=== PATIENT | female | born 1980 ===

== ENCOUNTER 2020-05-18 11:21 | Emergency (ER) | payer OTHER, SELFPAY ==
--- NOTE | 2020-05-18 | XR_ITS ---
EXAMINATION: XR ANKLE, RIGHT CLINICAL INFORMATION: Pain with ambulation. COMPARISON: None TECHNIQUE: AP, lateral, and mortise views of the right ankle. FINDINGS: The bony alignment and mineralization are normal. No fracture. Alignment is anatomic. Joint spaces are maintained. There is mild peripheral osteophyte formation at the anterior aspect of the tibiotalar joint and of the dorsal midfoot. No joint effusion. There is a small plantar calcaneal spur. The soft tissue planes are unremarkable, without foreign body IMPRESSION: 1. No right ankle fracture, dislocation or joint effusion is seen. 2. There is a small plantar calcaneal spur. 3. There are mild osteoarthritic changes.
[2020-05-18 11:34] VITALS: BP 140/92; PULSE 90; RESP 18; TEMP 36.5; O2SAT 99; BMI 55.4
--- NOTE | 2020-05-18 13:09 | ED_ITS ---
HPI - Extremity Problem General Chief complaint: Extremity Injury, Lower Stated complaint: pain in r ankle Time Seen by Provider: 05/18/20 11:45 History of Present Illness HPI Narrative: patient complains of pain in the back of the right ankle for several days with no known injury, pain is worse with walking and movement mint and relieved by rest , she denies any break in the skin, no fever Related Data Previous Rx's Medication Instructions Recorded acetaminophen [Tylenol] 975 mg PO Q8H PRN #60 cap 05/18/20 acetaminophen [Tylenol] 975 mg PO Q8H PRN #60 cap 05/18/20 ibuprofen 800 mg PO Q8H PRN #20 tab 05/18/20 ibuprofen 800 mg PO Q8H PRN #30 tab 05/18/20 oxycodone 5 mg PO Q6H PRN #10 cap 05/18/20 oxycodone 5 mg PO Q6H PRN #10 cap 05/18/20 Allergies Allergy/AdvReac Type Severity Reaction Status Date / Time No Known Allergies Allergy Verified 05/18/20 11:40 [No Known Allergies*] Review of Systems Review of Systems: there is no chest pain, no trouble breathing no calf pain no redness no wound to the skin no numbness no weakness no radiation of pain, no rash PMFSH Past Medical History Source: nursing notes reviewed Medical History (Updated 05/18/20 @ 13:07 by CATALINO Zuniga) delivery delivered Obesity Surgical History (Updated 05/18/20 @ 11:39 by Martha Wallace) History of cholecystectomy Hx of laparoscopic gastric banding Social History Social History Alcohol intake: unknown Use of substances other than those prescribed or required for medical reasons: Unknown Advance Directives: No Advance Directives Information Provided: No Physical Exam Vital Signs and I&O and Narrative: Vital Signs and I&O: Vital Signs Temp 97.7 F 05/18/20 11:34 Pulse 90 05/18/20 11:34 Resp 18 05/18/20 11:34 BP 140/92 H 05/18/20 11:34 Pulse Ox 99 05/18/20 11:34 Intake & Output 05/17/20 05/18/20 05/18/20 18:59 06:59 18:59 Weight 146.51 kg Body Mass Index 55.4 patient is in no acute distress, comfortable, well appearing and cooperative The head is normocephalic atraumatic the neck is supple the respiratory there is no respiratory distress the extremities she has full range of motion in all joints including the right ankle, the tenderness is in the right Achilles tendon which appears to be mildly swollen, the skin is normal color not red or warm, no wound no discharge, no lymphangitis, and neurovascular is intact distal Neuro is a and O x3, no focal deficits Course Course Course Narrative: x-ray of the right ankle was reviewed and radiologist's no was reviewed and no acute injury, there was a small heel spur Patient most likely has inflammation of Achilles tendon consistent with Achilles tendinitis Discharge Plan Discharge Clinical Impression: Achilles tendinitis Qualifiers: Laterality: right Qualified Code(s): M76.61 - Achilles tendinitis, right leg Patient Disposition: Home, Self-Care Additional Instructions: Achilles tendinitis is an inflammation of a large tendon in the back of your foot It is usually self-limited from but if it does not go away on its own follow with plastic injection mold maker or orthopedist for further evaluation and treatment Return any time any worse condition or concerns Prescriptions: New ibuprofen 800 mg tablet 800 mg PO Q8H PRN (Reason: pain) Qty: 30 RF: 0 acetaminophen [Tylenol] 325 mg capsule 975 mg PO Q8H PRN (Reason: pain) Qty: 60 RF: 0 oxycodone 5 mg capsule 5 mg PO Q6H PRN (Reason: pain) Qty: 10 RF: 0 acetaminophen [Tylenol] 325 mg capsule 975 mg PO Q8H PRN (Reason: pain) Qty: 60 RF: 0 ibuprofen 800 mg tablet 800 mg PO Q8H PRN (Reason: pain) Qty: 20 RF: 0 oxycodone 5 mg capsule 5 mg PO Q6H PRN (Reason: pain) Qty: 10 RF: 0 Referrals: Torsten David MD [Physician] - 2 days Stand Alone Forms: Work/School Release Interventions: ED Discharge Assessment Last Done: 05/18/20 13:10 Discharge Date/Time: 05/18/20 13:10
== END 2020-05-18 13:10 | disposition home or self-care (01) ==
PROVIDERS: Emergency Provider Internal Medicine
DX: M76.61 Achilles tendinitis, right leg (principal); M25.571 Pain in right ankle and joints of right foot; Z79.899 Other long term (current) drug therapy; Z98.84 Bariatric surgery status
CPT/HCPCS: 73610; 99283; 99284

== ENCOUNTER 2021-06-21 17:01 | Emergency (ER) | payer OTHER, SELFPAY ==
--- NOTE | ~2021-06-21 | XR_ITS ---
EXAMINATION: XR KNEE, LEFT CLINICAL INFORMATION: Left knee pain COMPARISON: None TECHNIQUE: Four views of the left knee. FINDINGS: Bones and soft tissues are normal. No fracture or joint effusion. Alignment is anatomic. Joint spaces are well maintained. No abnormal soft tissue calcification. XR/XR knee LT 4V IMPRESSION: Normal left knee.
--- NOTE | ~2021-06-21 | XR_ITS ---
EXAMINATION: XR CHEST CLINICAL INFORMATION: Left leg pain and swelling COMPARISON: Chest x-ray 12/09/2019 TECHNIQUE: 2 views of the chest were obtained. FINDINGS: Cardiac silhouette is normal in size. Mildly hypoinflated lungs. No lobar consolidation. No pleural effusion or pneumothorax. Mild degenerative changes of the spine. XR/XR chest 2V IMPRESSION: Hypoinflated lungs without acute pulmonary pathology.
--- NOTE | ~2021-06-21 | US_ITS ---
EXAMINATION: US VENOUS ULTRASOUND WITH DOPPLER LOWER EXTREMITY, LEFT CLINICAL INFORMATION: Left lower extremity pain and edema. COMPARISON: Ultrasound of the right lower extremity 06/19/2016. TECHNIQUE: Ultrasound of the deep veins is performed from the hip to the calf with compression sonography and color and pulse Doppler assessment. Spectral analysis with color-flow imaging is performed. FINDINGS: There is normal venous compression and respiratory variation and augmented flow. The visualized common femoral vein, superficial femoral vein, profunda femoral vein, popliteal vein, and the trifurcation region shows no evidence of deep venous thrombosis. There is no significant popliteal fossa cyst. Cardiac phasicity is increased. If the patient's symptoms persist, followup ultrasound in 5 days 7 days might be of value to exclude proximal propagation from a non-visualized calf vein. US/US venous duplex LE LT IMPRESSION: No DVT demonstrated in the left lower extremity. There is prominent cardiac phasicity which may be seen with tricuspid regurgitation/right heart dysfunction. Correlate with clinical history and if indicated an echocardiogram.
[2021-06-21 17:37] VITALS: BP 164/96; PULSE 70; RESP 17; TEMP 36.8; O2SAT 99; BMI 54.9
--- NOTE | 2021-06-21 18:21 | ED_ITS ---
HPI - Extremity Problem General Chief complaint: Extremity Injury, Lower <CATALINO Polk Last Filed: 06/21/21 18:52> Stated complaint: Left leg pain <CATALINO Polk Last Filed: 06/21/21 18:52> Time Seen by Provider: 06/21/21 17:50 <CATALINO Polk Last Filed: 06/21/21 18:52> Source: patient <CATALINO Polk Last Filed: 06/21/21 18:52> Mode of arrival: ambulatory <CATALINO Polk Last Filed: 06/21/21 18:52> Limitations: language barrier (Maltese-speaking) <CATALINO Polk Last Filed: 06/21/21 18:52> History of Present Illness HPI Narrative: 41-year-old female who is Maltese-speaking presenting to the ED with complaints of atraumatic left knee pain radiating down to her left lower extremity/calf since Thursday when she woke up. She reports on Thursday she did not have this pain although she was cleaning all day Thursday. She denies any dizziness, headaches, fevers, neck pain/stiffness, nausea/vomiting, paresthesias, chest pain or shortness of breath, changes in vision, dyspnea on exertion, orthopnea, abdominal pain, back pain, lower extremity edema, recent travel or sick contacts, hypercoagulation disorder, any estrogen use, history of DVT or PE, recent surgery/procedure or immobilization, history of gout, history of PVD disease, or recent illness or any other symptoms complaints or concerns at this time <CATALINO Polk - Last Filed: 06/21/21 18:52> MD Complaint: extremity pain and extremity swelling <CATALINO Polk Last Filed: 06/10 09/30 18:52> Onset (ago): day(s) (3 ) <CATALINO Polk Last Filed: 06/21/21 18:52> Pain Consistency: constant <CATALINO Polk Last Filed: 06/21/21 18:52> Location: left and lower extremity <CATALINO Polk Last Filed: 06/21/21 18:52> Quality: aching <CATALINO Polk Last Filed: 06/21/21 18:52> Radiation: distal <CATALINO Polk Last Filed: 06/21/21 18:52> Relieving factors: nothing <CATALINO Polk Last Filed: 06/21/21 18:52> Exacerbating factors: range of motion, weight bearing, walking and palpation <CATALINO Polk Last Filed: 06/21/21 18:52> Associated symptoms: denies other symptoms <CATALINO Polk Last Filed: 06/21/21 18:52> Related Data Home medications: Previous Rx's Medication Instructions Recorded acetaminophen 325 mg capsule 975 mg PO Q8H PRN #60 cap 05/18/20 (Tylenol) acetaminophen 325 mg capsule 975 mg PO Q8H PRN #60 cap 05/18/20 (Tylenol) ibuprofen 800 mg tablet 800 mg PO Q8H PRN #20 tab 05/18/20 ibuprofen 800 mg tablet 800 mg PO Q8H PRN #30 tab 05/18/20 oxycodone 5 mg capsule 5 mg PO Q6H PRN #10 cap 05/18/20 oxycodone 5 mg capsule 5 mg PO Q6H PRN #10 cap 05/18/20 ibuprofen 800 mg tablet 800 mg PO Q8H PRN #14 tab 06/21/21 <CATALINO Polk Last Filed: 06/21/21 18:52> Allergies/Adverse reactions: Allergies Allergy/AdvReac Type Severity Reaction Status Date / Time No Known Allergies Allergy Verified 06/21/21 17:37 [No Known Allergies*] <CATALINO Polk Last Filed: 06/21/21 18:52> Review of Systems Review of Systems: Constitutional : No Weight loss, No Fever, No Chills, No Night Sweats, No Fatigue, No Malaise ENT/Mouth : No Hearing loss, No Ear Pain, No Nasal Congestion, No Sinus Pain, No Hoarseness, No sore throat, No Rhinorrhea, No Swallowing Difficulty Eyes: No Eye Pain, No Swelling, No Redness, No Foreign Body, No Discharge, No Vision Changes Cardiovascular : No Chest Pain, No SOB, No Dyspnea on Exertion, No Orthopnea, No Edema, No Palpitations Respiratory : No Cough, No Sputum, No Wheezing, No Smoke Exposure, No Dyspnea Gastrointestinal : No Nausea, No Vomiting, No Diarrhea, No Constipation, No abdominal Pain, No Hematochezia, No Melena Genitourinary : no irregular bleeding, No Dysuria, No Urinary Frequency, No Hematuria, No Urinary Incontinence, No Urgency, No Flank Pain, No Urinary Flow Changes, No Hesitancy Musculoskeletal : + joint painswelling, No Myalgias Skin : No Skin Lesions, No rash Neuro : No Weakness, No Numbness, No Paresthesias, No Loss of Consciousness, No Dizziness, No Headache Psych : No Anxiety/Panic, No Depression, No SI/HI/AH/VH, No Social Issues, Heme/Lymph: No Bruising, No Bleeding,No Lymphadenopathy Endocrine : No Polyuria, No Polydipsia, No Temperature Intolerance <CATALINO Limon - Last Filed: 06/21/21 18:52> Yes all other systems are reviewed and are negative <CATALINO Polk - Last Filed: 06/21/21 18:52> [facility] Past Medical History Attestation statement: The following information was validated with the patient. <CATALINO Polk - Last Filed: 06/21/21 18:52> Medical History: Medical History delivery delivered Obesity <CATALINO Polk - Last Filed: 06/21/21 18:52> Surgical History: Surgical History History of cholecystectomy Hx of laparoscopic gastric banding <CATALINO Polk - Last Filed: 06/21/21 18:52> Social History Social History: Social History Alcohol intake: unknown Advance Directives: No Advance Directives Information Provided: No Patient : No <CATALINO Polk - Last Filed: 06/21/21 18:52> Physical Exam Vital Signs: Vital Signs: Last Vital Signs Temp 98.3 F 06/21/21 19:46 Pulse 70 06/21/21 19:46 Resp 20 06/21/21 19:46 BP 156/89 H 06/21/21 19:46 Pulse Ox 99 06/21/21 19:46 Body Mass Index 54.9 <CATALINO Polk - Last Filed: 06/21/21 18:52> Vital Signs: Last Vital Signs Temp 98.3 F 06/21/21 19:46 Pulse 70 06/21/21 19:46 Resp 20 06/21/21 19:46 BP 156/89 H 06/21/21 19:46 Pulse Ox 99 06/21/21 19:46 Body Mass Index 54.9 <CATALINO Longoria - Last Filed: 06/21/21 19:57> Course Course Course Narrative: 17:55pm - 41-year-old female who is Maltese-speaking presenting to the ED with complaints of atraumatic left knee pain radiating down to her left lower extremity/calf since Thursday when she woke up. She reports on Thursday she did not have this pain although she was cleaning all day Thursday. Plan: Xray of left knee and venous duplex US of LLE then re-evaluate <CATALINO Polk - Last Filed: 06/21/21 18:52> Reevaluation(s) Reevaluation #1: - Xray of left knee negative - US of LLE negative for DVT. Although revealed cardiac phasicity therefore I discussed this case with CHINYERE Noyola and we will add labs including a BNP chest x-ray an EKG if negative patient will be discharged home with referral to Cardiology - patient denies any history of cardiac problems patient understands agrees with this plan. <CATALINO Polk - Last Filed: 06/21/21 18:52> Time: 18:29 <CATALINO Polk - Last Filed: 06/21/21 18:52> Reevaluation #2: Patient signed out to me by Yudelka WHITLOCK. Her workup is unremarkable, with a normal EKG normal BNP. No signs of acute heart failure at this time she has no chest pain or shortness of breath. She has appointment with her primary care doctor on July 10. She is stable for discharge home with planned follow-up with her outpatient doctor. Will treat her knee pain with an NSAID and Nicholas wrap for compression and support. Patient agrees with plan. <CATALINO Longoria - Last Filed: 06/21/21 19:57> Time: 19:56 <CATALINO Longoria - Last Filed: 06/21/21 19:57> MDM - Extremity (Nontraumatic) Medical Records Attestation: I reviewed the patient's medical records. <CATALINO Polk - Last Filed: 06/21/21 18:52> Lab Data Result diagrams: : 06/21/21 19:13 06/21/21 19:12 <CATALINO Polk - Last Filed: 06/21/21 18:52> Labs: Lab Results 06/21/21 06/21/21 06/21/21 Range/Units 19:12 19:12 19:13 WBC 8.7 (4.8-10.8) X10*3/uL RBC 4.30 (4.20-5.50) X10*6/uL Hgb 11.5 L (12.0-16.0) g/dl Hct 36.0 L (37.0-47.0) % MCV 83.7 (80.0-98.0) fL MCH 26.7 L (27.0-33.0) pg MCHC 31.9 (31.0-35.0) g/dl RDW 13.4 (11.0-16.0) % Plt Count 273 (160-400) X10*3/uL MPV 9.6 (9.4-12.3) fL Immature Gran % (Auto) 0.3 (0.0-0.4) % Neut % (Auto) 60.6 (45-73) % Lymph % (Auto) 30.5 (20-40) % Porter % (Auto) 7.1 (2-11) % Eos % (Auto) 1.0 (0-4) % Baso % (Auto) 0.5 (0-2) % Lymph # (Auto) 2.6 (1.2-4.9) X10*3/uL Porter # (Auto) 0.6 (0.1-1.2) X10*3/uL Eos # (Auto) 0.1 (0.0-0.4) X10*3/uL Baso # (Auto) 0.0 (0.0-0.2) X10*3/uL Abs Immat Gran (auto) 0.03 (0.00-0.03) X10*3/uL Absolute Neuts (auto) 5.2 (2.0-8.3) x10*3/uL Absolute Nucleated RBC 0.000 (0.0-0.012) X10*3/uL Nucleated RBC % (auto) 0.0 (0.0-0.2) /100WBC Hold Purple Top SEE NOTE Sodium 138 (135-145) mmol/L Potassium 3.4 (3.3-5.1) mmol/L Chloride 105 (96-108) mmol/L Carbon Dioxide 28 (22-29) mmol/L Anion Gap 8 L (12-20) BUN 15 (9-16) mg/dL Creatinine 0.76 (0.5-1.4) mg/dL Estim Creat Clear Calc 141.1 Estimated GFR > 60 Random Glucose 91 (60-115) mg/dL Calcium 8.9 (8.4-10.2) mg/dL Magnesium 1.7 (1.6-2.6) mg/dL Total Bilirubin 0.5 (0.0-1.0) mg/dL AST 14 (5-31) U/L ALT 11 (0-31) U/L Alkaline Phosphatase 85 (39-117) U/L B-Natriuretic Peptide (<100) pg/mL Total Protein 6.6 (6.5-8.0) g/dL Albumin 3.9 (3.5-5.0) g/dL 06/21/21 Range/Units 19:13 WBC (4.8-10.8) X10*3/uL RBC (4.20-5.50) X10*6/uL Hgb (12.0-16.0) g/dl Hct (37.0-47.0) % MCV (80.0-98.0) fL MCH (27.0-33.0) pg MCHC (31.0-35.0) g/dl RDW (11.0-16.0) % Plt Count (160-400) X10*3/uL MPV (9.4-12.3) fL Immature Gran % (Auto) (0.0-0.4) % Neut % (Auto) (45-73) % Lymph % (Auto) (20-40) % Porter % (Auto) (2-11) % Eos % (Auto) (0-4) % Baso % (Auto) (0-2) % Lymph # (Auto) (1.2-4.9) X10*3/uL Porter # (Auto) (0.1-1.2) X10*3/uL Eos # (Auto) (0.0-0.4) X10*3/uL Baso # (Auto) (0.0-0.2) X10*3/uL Abs Immat Gran (auto) (0.00-0.03) X10*3/uL Absolute Neuts (auto) (2.0-8.3) x10*3/uL Absolute Nucleated RBC (0.0-0.012) X10*3/uL Nucleated RBC % (auto) (0.0-0.2) /100WBC Hold Purple Top Sodium (135-145) mmol/L Potassium (3.3-5.1) mmol/L Chloride (96-108) mmol/L Carbon Dioxide (22-29) mmol/L Anion Gap (12-20) BUN (9-16) mg/dL Creatinine (0.5-1.4) mg/dL Estim Creat Clear Calc Estimated GFR Random Glucose (60-115) mg/dL Calcium (8.4-10.2) mg/dL Magnesium (1.6-2.6) mg/dL Total Bilirubin (0.0-1.0) mg/dL AST (5-31) U/L ALT (0-31) U/L Alkaline Phosphatase (39-117) U/L B-Natriuretic Peptide 27 (<100) pg/mL Total Protein (6.5-8.0) g/dL Albumin (3.5-5.0) g/dL <CATALINO Polk - Last Filed: 06/21/21 18:52> Lab Results 06/21/21 06/21/21 06/21/21 Range/Units 19:12 19:12 19:13 WBC 8.7 (4.8-10.8) X10*3/uL RBC 4.30 (4.20-5.50) X10*6/uL Hgb 11.5 L (12.0-16.0) g/dl Hct 36.0 L (37.0-47.0) % MCV 83.7 (80.0-98.0) fL MCH 26.7 L (27.0-33.0) pg MCHC 31.9 (31.0-35.0) g/dl RDW 13.4 (11.0-16.0) % Plt Count 273 (160-400) X10*3/uL MPV 9.6 (9.4-12.3) fL Immature Gran % (Auto) 0.3 (0.0-0.4) % Neut % (Auto) 60.6 (45-73) % Lymph % (Auto) 30.5 (20-40) % Porter % (Auto) 7.1 (2-11) % Eos % (Auto) 1.0 (0-4) % Baso % (Auto) 0.5 (0-2) % Lymph # (Auto) 2.6 (1.2-4.9) X10*3/uL Porter # (Auto) 0.6 (0.1-1.2) X10*3/uL Eos # (Auto) 0.1 (0.0-0.4) X10*3/uL Baso # (Auto) 0.0 (0.0-0.2) X10*3/uL Abs Immat Gran (auto) 0.03 (0.00-0.03) X10*3/uL Absolute Neuts (auto) 5.2 (2.0-8.3) x10*3/uL Absolute Nucleated RBC 0.000 (0.0-0.012) X10*3/uL Nucleated RBC % (auto) 0.0 (0.0-0.2) /100WBC Hold Purple Top SEE NOTE Sodium 138 (135-145) mmol/L Potassium 3.4 (3.3-5.1) mmol/L Chloride 105 (96-108) mmol/L Carbon Dioxide 28 (22-29) mmol/L Anion Gap 8 L (12-20) BUN 15 (9-16) mg/dL Creatinine 0.76 (0.5-1.4) mg/dL Estim Creat Clear Calc 141.1 Estimated GFR > 60 Random Glucose 91 (60-115) mg/dL Calcium 8.9 (8.4-10.2) mg/dL Magnesium 1.7 (1.6-2.6) mg/dL Total Bilirubin 0.5 (0.0-1.0) mg/dL AST 14 (5-31) U/L ALT 11 (0-31) U/L Alkaline Phosphatase 85 (39-117) U/L B-Natriuretic Peptide (<100) pg/mL Total Protein 6.6 (6.5-8.0) g/dL Albumin 3.9 (3.5-5.0) g/dL 06/21/21 Range/Units 19:13 WBC (4.8-10.8) X10*3/uL RBC (4.20-5.50) X10*6/uL Hgb (12.0-16.0) g/dl Hct (37.0-47.0) % MCV (80.0-98.0) fL MCH (27.0-33.0) pg MCHC (31.0-35.0) g/dl RDW (11.0-16.0) % Plt Count (160-400) X10*3/uL MPV (9.4-12.3) fL Immature Gran % (Auto) (0.0-0.4) % Neut % (Auto) (45-73) % Lymph % (Auto) (20-40) % Porter % (Auto) (2-11) % Eos % (Auto) (0-4) % Baso % (Auto) (0-2) % Lymph # (Auto) (1.2-4.9) X10*3/uL Porter # (Auto) (0.1-1.2) X10*3/uL Eos # (Auto) (0.0-0.4) X10*3/uL Baso # (Auto) (0.0-0.2) X10*3/uL Abs Immat Gran (auto) (0.00-0.03) X10*3/uL Absolute Neuts (auto) (2.0-8.3) x10*3/uL Absolute Nucleated RBC (0.0-0.012) X10*3/uL Nucleated RBC % (auto) (0.0-0.2) /100WBC Hold Purple Top Sodium (135-145) mmol/L Potassium (3.3-5.1) mmol/L Chloride (96-108) mmol/L Carbon Dioxide (22-29) mmol/L Anion Gap (12-20) BUN (9-16) mg/dL Creatinine (0.5-1.4) mg/dL Estim Creat Clear Calc Estimated GFR Random Glucose (60-115) mg/dL Calcium (8.4-10.2) mg/dL Magnesium (1.6-2.6) mg/dL Total Bilirubin (0.0-1.0) mg/dL AST (5-31) U/L ALT (0-31) U/L Alkaline Phosphatase (39-117) U/L B-Natriuretic Peptide 27 (<100) pg/mL Total Protein (6.5-8.0) g/dL Albumin (3.5-5.0) g/dL <CATALINO Longoria - Last Filed: 06/21/21 19:57> Imaging Data X-ray of left knee: Attestation: I personally reviewed and interpreted this imaging study as follows: <CATALINO Polk - Last Filed: 06/21/21 18:52> Radiologist's impression: FINDINGS: Bones and soft tissues are normal. No fracture or joint effusion. Alignment is anatomic. Joint spaces are well maintained. No abnormal soft tissue calcification.? XR/XR knee LT 4V IMPRESSION: Normal left knee. <CATALINO Polk - Last Filed: 06/21/21 18:52> Ultrasound the left lower extremity: Attestation: I personally reviewed and interpreted this imaging study as follows: <CATALINO Polk - Last Filed: 06/21/21 18:52> Radiologist's impression: FINDINGS: There is normal venous compression and respiratory variation and augmented flow. The visualized common femoral vein, superficial femoral vein, profunda femoral vein, popliteal vein, and the trifurcation region shows no evidence of deep venous thrombosis. There is no significant popliteal fossa cyst. Cardiac phasicity is increased. If the patient's symptoms persist, followup ultrasound in 5 days 7 days might be of value to exclude proximal propagation from a non-visualized calf vein. US/US venous duplex LE LT IMPRESSION: No DVT demonstrated in the left lower extremity. ? There is prominent cardiac phasicity which may be seen with tricuspid regurgitation/right heart dysfunction. Correlate with clinical history and if indicated an echocardiogram. <CATALINO Polk Last Filed: 06/21/21 18:52> ECG Data Attestation EKG: I personally reviewed and interpreted this ECG as follows: <CATALINO Longoria - Last Filed: 06/21/21 19:57> ECG interpretation date: 06/21/21 <CATALINO Longoria - Last Filed: 06/21/21 19:57> ECG interpretation time: 19:54 <CATALINO Longoria - Last Filed: 06/21/21 19:57> Prior ECG tracings: not available for review <CATALINO Longoria - Last Filed: 06/21/21 19:57> Interpretation: normal sinus rhythm, HR 66 bpm, normal TN interval, no ST segment elevations or depressions. normal EKG <CATALINO Longoria - Last Filed: 06/21/21 19:57> Critical Care Time Critical Care Time Critical Care Time: Yes <CATALINO Polk - Last Filed: 06/21/21 18:52> Total Critical Care Time: 60 <CATALINO Polk - Last Filed: 06/21/21 18:52> Attestation: I personally attest to this time spent taking care of the patient <CATALINO Polk - Last Filed: 06/21/21 18:52> Discharge Plan Discharge Clinical Impression: Left leg pain <CATALINO Polk - Last Filed: 06/21/21 18:52> Patient Disposition: Still a Patient <CATALINO Polk - Last Filed: 06/21/21 18:52> Instructions: Leg Pain (ED) <CATALINO Polk - Last Filed: 06/21/21 18:52> Additional Instructions: Your knee x-ray was normal Your leg ultrasound did not show any blood clots. It did show possible flow abnormality that may be related to a heart valve problem however it is unclear. You should follow-up with your primary care doctor for further evaluation. Your blood work today was unremarkable and showed no signs of issues with your heart. Your EKG was normal. Wear the Nicholas wrap as needed for support compression. Rest her knee. Use ice several times per day. <CATALINO Polk - Last Filed: 06/21/21 18:52> Prescriptions: New ibuprofen 800 mg tablet 800 mg PO Q8H PRN (Reason: pain) Qty: 14 RF: 0 No Action ibuprofen 800 mg tablet 800 mg PO Q8H PRN (Reason: pain) Qty: 30 RF: 0 acetaminophen [Tylenol] 325 mg capsule 975 mg PO Q8H PRN (Reason: pain) Qty: 60 RF: 0 oxycodone 5 mg capsule 5 mg PO Q6H PRN (Reason: pain) Qty: 10 RF: 0 acetaminophen [Tylenol] 325 mg capsule 975 mg PO Q8H PRN (Reason: pain) Qty: 60 RF: 0 ibuprofen 800 mg tablet 800 mg PO Q8H PRN (Reason: pain) Qty: 20 RF: 0 oxycodone 5 mg capsule 5 mg PO Q6H PRN (Reason: pain) Qty: 10 RF: 0 <CATALINO Polk - Last Filed: 06/21/21 18:52> Referrals: Eugene Houston MD [Physician] - 1 week (Prominent cardiac phasicity seen on lower extremity Doppler which may be consistent with tricuspid regurgitation or right heart dysfunction) <CATALINO Polk - Last Filed: 06/21/21 18:52>
--- NOTE | 2021-06-21 18:48 | ECG_ITS ---
Test Reason : LEG PAIN Blood Pressure : / mmHG Vent. Rate : 066 BPM Atrial Rate : 066 BPM P-R Int : 148 ms QRS Dur : 078 ms QT Int : 420 ms P-R-T Axes : 055 030 029 degrees QTc Int : 440 ms Normal sinus rhythm Possible Left atrial enlargement Otherwise normal ECG When compared with ECG of 16-FEB-2020 16:10, No significant change was found Referred By: Yudelka Land Electronically Signed By:LEONORA MORE MD
[2021-06-21 19:18] LABS: MANUAL DIFF FLAG NO
[2021-06-21 19:22] LABS: Basophils Percent Auto 0.5 % (0-2); Eosinophils Absolute Auto 0.1 X10*3/uL (0.0-0.4); Hemoglobin 11.5 g/dl (12.0-16.0); Imm Gran Abs Auto 0.03 X10*3/uL (0.00-0.03); Imm Gran Pct Auto 0.3 % (0.0-0.4); Lymphocytes Absolute Auto 2.6 X10*3/uL (1.2-4.9); Lymphocytes Percent Auto 30.5 % (20-40); Mean Corpuscular HGB Conc 31.9 g/dl (31.0-35.0); Mean Corpuscular Hemoglobin 26.7 pg (27.0-33.0); Mean Corpuscular Volume 83.7 fL (80.0-98.0); Mean Platelet Volume 9.6 fL (9.4-12.3); Monocytes Absolute Auto 0.6 X10*3/uL (0.1-1.2); Monocytes Percent Auto 7.1 % (2-11); Neutrophils Absolute Auto 5.2 x10*3/uL (2.0-8.3); Neutrophils Percent Auto 60.6 % (45-73); Platelet Count 273 X10*3/uL (160-400); Red Cell Distribution Width 13.4 % (11.0-16.0); White Blood Count 8.7 X10*3/uL (4.8-10.8)
[2021-06-21 19:40] LABS: Alanine Aminotransferase 11 U/L (0-31); Albumin Level 3.9 g/dL (3.5-5.0); Alkaline Phosphatase 85 U/L (39-117); Anion Gap 8 (12-20); Aspartate Amino Transferase 14 U/L (5-31); Bilirubin Total 0.5 mg/dL (0.0-1.0); Blood Urea Nitrogen 15 mg/dL (9-16); Calcium 8.9 mg/dL (8.4-10.2); Carbon Dioxide 28 mmol/L (22-29); Chloride 105 mmol/L (96-108); Creatinine Clr Calc Pharmacy 141.1; Estimated Glomerular Filt Rate > 60; Glucose Random 91 mg/dL (60-115); Magnesium 1.7 mg/dL (1.6-2.6); Potassium 3.4 mmol/L (3.3-5.1); Sodium 138 mmol/L (135-145); Total Protein 6.6 g/dL (6.5-8.0)
[2021-06-21 19:40] LABS: B Type Natriuretic Peptide 27 pg/mL (<100)
[2021-06-21 19:46] VITALS: BP 156/89; PULSE 70; RESP 20; TEMP 36.8; O2SAT 99
== END 2021-06-21 20:25 | disposition home or self-care (01) ==
PROVIDERS: Physician Assistant Medical; Emergency Provider Internal Medicine
DX: M79.605 Pain in left leg (principal); M25.562 Pain in left knee
CPT/HCPCS: 36415; 71046; 73564; 80053; 83735; 83880; 85025; 93005; 93971; 99284

== ENCOUNTER 2021-08-29 09:24 | Outpatient (REF) | payer OTHER, SELFPAY ==
[2021-08-29 09:57] LABS: Binax Internal Control QC Valid; Binax Now Covid-19 Ag Negative (Negative)
== END 2021-08-29 09:25 | disposition home or self-care (01) ==
LOC: HO.HMGCLDS 09:24
PROVIDERS: Visit Provider Physician Assistant
DX: Z13.89 Encounter for screening for other disorder (principal)

== ENCOUNTER 2022-06-27 11:04 | Outpatient (REF) | payer OTHER, SELFPAY ==
[2022-06-27 11:22] LABS: MANUAL DIFF FLAG NO
[2022-06-27 11:58] LABS: Basophils Percent Auto 0.4 % (0-2); Eosinophils Absolute Auto 0.1 X10*3/uL (0.0-0.4); Eosinophils Percent Auto 0.9 % (0-4); Hematocrit 41.7 % (37.0-47.0); Hemoglobin 12.9 g/dl (12.0-16.0); Imm Gran Abs Auto 0.02 X10*3/uL (0.00-0.03); Imm Gran Pct Auto 0.3 % (0.0-0.4); Lymphocytes Absolute Auto 2.7 X10*3/uL (1.2-4.9); Lymphocytes Percent Auto 34.1 % (20-40); Mean Corpuscular HGB Conc 30.9 g/dl (31.0-35.0); Mean Corpuscular Hemoglobin 26.2 pg (27.0-33.0); Mean Corpuscular Volume 84.6 fL (80.0-98.0); Mean Platelet Volume 9.8 fL (9.4-12.3); Monocytes Absolute Auto 0.5 X10*3/uL (0.1-1.2); Monocytes Percent Auto 6.4 % (2-11); Neutrophils Absolute Auto 4.5 x10*3/uL (2.0-8.3); Neutrophils Percent Auto 57.9 % (45-73); Platelet Count 356 X10*3/uL (160-400); Red Blood Count 4.93 X10*6/uL (4.20-5.50); Red Cell Distribution Width 13.5 % (11.0-16.0); White Blood Count 7.8 X10*3/uL (4.8-10.8)
[2022-06-27 12:40] LABS: Appearance Urine Clear; Color Urine Yellow; Glucose Urine UA Negative (Negative); Leukocyte Esterase Urine Negative (Negative); Nitrite Urine Negative (Negative); PH 5.5 (5.0-9.0); Specific Gravity - Urine 1.015 (1.005-1.025); Urine Blood Negative (Negative); Urine Ketones 15 mg/dL (Negative); Urine Protein Negative (Neg-Trace)
[2022-06-27 12:52] LABS: Alanine Aminotransferase 12 U/L (0-31); Alkaline Phosphatase 88 U/L (39-117); Anion Gap 13 (12-20); Aspartate Amino Transferase 15 U/L (5-31); Bilirubin Total 0.8 mg/dL (0.0-1.0); Blood Urea Nitrogen 15 mg/dL (9-16); Calcium 9.8 mg/dL (8.4-10.2); Carbon Dioxide 27 mmol/L (22-29); Chloride 104 mmol/L (96-108); Cholesterol 211 mg/dL; Estimated Glomerular Filt Rate > 60; Glucose Fasting 88 mg/dL (60-99); HDL Cholesterol 38 mg/dL; LDL Cholesterol Calculated 157 mg/dl; Potassium 4.3 mmol/L (3.3-5.1); Sodium 140 mmol/L (135-145); Total Protein 7.5 g/dL (6.5-8.0); Triglycerides 80 mg/dL
[2022-06-27 12:57] LABS: Estimated Average Glucose 105 mg/dL; Hemoglobin A1c % 5.3 %
[2022-06-27 14:13] LABS: Albumin Level 4.5 g/dL (3.5-5.0); Vitamin D 25-OH Total 23.4 ng/mL (>30)
== END 2022-06-27 11:05 | disposition home or self-care (01) ==
LOC: HO.LAB 11:04
PROVIDERS: PCP Internal Medicine; Visit Provider Internal Medicine
DX: Z00.00 Encounter for general adult medical examination without abnormal findings (principal); E66.01 Morbid (severe) obesity due to excess calories; Z68.43 Body mass index [BMI] 50.0-59.9, adult; E55.9 Vitamin D deficiency, unspecified; R73.9 Hyperglycemia, unspecified; R30.0 Dysuria; E78.00 Pure hypercholesterolemia, unspecified
CPT/HCPCS: 36415; 80053; 80061; 81003; 82306; 83036; 84443; 85025

== ENCOUNTER → 2022-09-09 11:37 | Outpatient (BNVA) | payer OTHER, SELFPAY | PROVIDERS: PCP Internal Medicine; Visit Provider Physician Assistant | DX: R10.13 Epigastric pain (principal); K64.9 Unspecified hemorrhoids; E66.01 Morbid (severe) obesity due to excess calories; Z68.43 Body mass index [BMI] 50.0-59.9, adult; Z98.84 Bariatric surgery status | CPT/HCPCS: 99202 ==

== ENCOUNTER 2022-10-15 08:23 | Outpatient (REF) | payer OTHER, SELFPAY ==
--- NOTE | ~2022-10-15 | US_ITS ---
EXAMINATION: US ABDOMEN COMPLETE CLINICAL INFORMATION: Unspecified abdominal pain. COMPARISON: None TECHNIQUE: Real-time imaging of the abdominal viscera. FINDINGS: PANCREAS: Normal. ABDOMINAL AORTA: The proximal, mid, and distal segments are normal in caliber. INFERIOR VENA CAVA: Visualized portions are normal. LIVER: Liver is enlarged measuring 18 cm in span. The liver contour is normal. Parenchymal echogenicity is normal. No focal hepatic lesion. There is no intrahepatic biliary duct dilatation seen. GALLBLADDER: Surgically absent. COMMON BILE DUCT: Normal in caliber measuring 0.3 cm in diameter. RIGHT KIDNEY: Benign-appearing 1 cm renal cyst, no follow-up imaging recommended. No hydronephrosis or renal calculi. The kidney measures 10.3 cm in maximum dimension. LEFT KIDNEY: Normal. No hydronephrosis. No renal calculi or focal parenchymal lesions. The kidney measures 11.3 cm in maximum dimension. SPLEEN: Incidentally noted accessory splenule. The spleen measures 11.5 cm in maximum dimension. FREE FLUID: None. US/US abdomen complete IMPRESSION: 1. Hepatomegaly. 2. Status post cholecystectomy. No intra or extrahepatic biliary duct dilatation.
== END 2022-10-15 08:24 | disposition home or self-care (01) ==
LOC: HO.US 08:23
PROVIDERS: PCP Physician Assistant; Visit Provider Physician Assistant
DX: R10.9 Unspecified abdominal pain (principal)
CPT/HCPCS: 76700

== ENCOUNTER → 2023-02-11 10:25 | Outpatient (BNVA) | payer OTHER, SELFPAY | PROVIDERS: PCP Internal Medicine; Visit Provider Physician Assistant Surgical ==

== ENCOUNTER 2023-03-13 10:56 | Outpatient (REF) | payer OTHER, SELFPAY ==
[2023-03-15 11:43] LABS: H Pylori Breath Test Positive (Negative)
== END 2023-03-13 10:57 | disposition home or self-care (01) ==
LOC: HO.LNP 10:56
PROVIDERS: PCP Internal Medicine; Visit Provider Physician Assistant
DX: Z01.818 Encounter for other preprocedural examination (principal); E66.01 Morbid (severe) obesity due to excess calories; Z90.49 Acquired absence of other specified parts of digestive tract
CPT/HCPCS: 83013; 99202; 99211

== ENCOUNTER 2023-03-13 10:56 | Outpatient (AMB) | payer OTHER, SELFPAY ==
--- NOTE | 2023-03-13 11:02 | MHC.OFFVISWM ---
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 Her pre op weight was 290 lbs and lowest weight about 265 lbs, she has gained about [address] Staates is somewhat filled now, last adjustment years ago. No n/v or relfux. Has minimal epigatric pain now. Her goal is tohave her band removed and lose at least 100 lbs with another bariatric surgery. She reports first being concerned about her weight about 1 year ago since knee pain started. She lives with her and 2 children. She is not working. Hasd SS at [facility] about 2 years ago - negative for JOSEY. She wakes at: 6am, bed at 8pm, falls asleep at 9:30 pm. Breakfast: 6 am --coffee first coffe. two - 10 oz cups - no sugar, half and half. Skips breakfast most days - has crackers or bread Lunch: 4pm - rice, pork chops, vegetables 2-3 d/ week. water - may have Soda Dinner: skips daily After dinner: states none Other snacks: Coffee - 2 cups in morning. 3rd cup coffee in afternoon. Has fruit or cheese - afternoon Liquids: Soda - 1 can Pepsi per day with dinner. No fruti juice or other sweetened drinks. Alcohol intake: none, tobacco: none, marijuana: none Exercise: Videos at home - 3d/ week, Beach Body 20 - 40 minutes, over last year Last mammogram: August 2021 Last pap smear: December 2022 control method: IUD RIGO:0 ESS:13 GERD:0 QOL:99 PFSH Medical History (Updated 03/13/23 @ 11:16 by Eileen Mitchell PA-C) Morbid obesity with BMI of 50.0-59.9, adult Surgical History (Updated 03/13/23 @ 11:16 by Eileen Mitchell PA-C) History of laparoscopic cholecystectomy Hx of laparoscopic gastric banding Previous section Family History Mother Hypertension Hyperlipidemia Brother Hyperlipidemia Maternal Uncle Diabetes mellitus Social History Housing: House Alcohol intake: former Patient Tobacco Use Status: Never used Tobacco service: No Current occupational status: employed Cognitive needs: No Hearing needs: No Vision needs: No Physical Exam Vital Signs: Last Vital Signs Temp 97.7 F 03/13/23 11:05 Pulse 71 03/13/23 11:05 BP 138/77 03/13/23 11:05 Pulse Ox 97 03/13/23 11:05 Oxygen Delivery Method Room Air 03/13/23 11:05 BMI result Body Mass Index 56.9 Const General: cooperative, no acute distress and well developed Nutritional Appearance: obese Orientation/consciousness: patient oriented x3 HEENT Head: Yes normal to inspection Neck Neck: Yes normal visual inspection Thyroid: Thyroid normal Resp Effort & Inspection: normal respiratory effort Auscultation: clear to auscultation bilaterally Cardio Rate: regular rate Rhythm: regular rhythm Heart sounds: S1 normal heart sound present, S2 normal heart sound present and no murmurs GI Inspection: No distended and Yes obesity Palpation (GI): Soft to palpation, nontender (mildly tender to palpation over gastric band port in epigastriium) and no guarding Skin General skin exam: no rashes or lesions noted and other (warm and dry) Wounds: no wounds Hair: normal Neuro General: patient oriented x3 Extrem General: Yes no pedal edema and Yes no calf tenderness Psych Attitude: cooperative Thought process: Normal thought process present Thought content: Normal thought content present Insight: Good insight present (Psych) Judgement: Good judgement present (Psych) Assessment & Plan Assessment & Plan (1) Morbid obesity: Code(s): E66.01 - Morbid (severe) obesity due to excess calories Plan: This is a 42 yo woman with gastric band in place, morbid obesity and possible JOSEY who wants band removed and conversion to LSG. Blood work, h pylori , CXR, ECG, Abd ULS and UGI have been ordered. She is being scheduled for RD and BH initial consultations. She will start SWL classes and watch at 3 classes before her next appt with Corry. Patient is concerned about not being able to tolerate protein shakes. We are obtaining OR report and SS report from [facility]. 1. Adequate sleep of 7-8 hours per night discussed, no caffeine after 2pm. 2. Healthy meal plan - stop skipping meals and stop all sweetened drinks All meals/MR's need to take 20 minutes to complete 6am coffee with UAM, or 1% milk only 8am - 30 gram shake - over 45 minutes, prepared shakes only for now. 12 pm - 30 gram shake 4 pm- dinner of 6 oz lean protein, 8 oz vegetable, 1 serving fruit 7 pm- bar or yogurt Exercise - Cardio 4 d week =Beach body 45 minutes videos - use health tracker - to burn 350 calories each day with exercise. The importance of avoiding and breast feeding for at least 18 months after bariatric surgery was discussed in the information session and was reinforced today. Has IUD. Pt has purchased body composition analyzer (recommended list given to patient) and weigh herself weekly. Next appt with me in 3 weeks. Text me with any questions and weekly weights. Patient is morbidly obese and is not considered stable at this time.?I spent a total of 60 minutes reviewing/updating records, examining the patient and counseling the patient on weight management as detailed above. (2) Hx of laparoscopic gastric banding: Comment: [facility] Code(s): Z98.84 - Bariatric surgery status (3) Pre-op evaluation: Code(s): Z01.818 - Encounter for other preprocedural examination (4) History of laparoscopic cholecystectomy: Comment: [facility] Code(s): Z90.49 - Acquired absence of other specified parts of digestive tract Orders: Orders Vitamin B12 and Folate Today E66.01 - Morbid (severe) obesity due to excess calories, Z01.818 - Encounter for other preprocedural examination, Z90.49 - Acquired absence of other specified parts of digestive tract Comprehensive Met. Panel Today E66.01 - Morbid (severe) obesity due to excess calories, Z01.818 - Encounter for other preprocedural examination, Z90.49 - Acquired absence of other specified parts of digestive tract C Reactive Protein Today E66.01 - Morbid (severe) obesity due to excess calories, Z01.818 - Encounter for other preprocedural examination, Z90.49 - Acquired absence of other specified parts of digestive tract Ferritin Today E66.01 - Morbid (severe) obesity due to excess calories, Z01.818 - Encounter for other preprocedural examination, Z90.49 - Acquired absence of other specified parts of digestive tract Hemoglobin A1c Today E66.01 - Morbid (severe) obesity due to excess calories, Z01.818 - Encounter for other preprocedural examination, Z90.49 - Acquired absence of other specified parts of digestive tract Insulin Today E66.01 - Morbid (severe) obesity due to excess calories, Z01.818 - Encounter for other preprocedural examination, Z90.49 - Acquired absence of other specified parts of digestive tract IRON PROFILE Today E66.01 - Morbid (severe) obesity due to excess calories, Z01.818 - Encounter for other preprocedural examination, Z90.49 - Acquired absence of other specified parts of digestive tract Lipid Panel Today E66.01 - Morbid (severe) obesity due to excess calories, Z01.818 - Encounter for other preprocedural examination, Z90.49 - Acquired absence of other specified parts of digestive tract PTHI Today E66.01 - Morbid (severe) obesity due to excess calories, Z01.818 - Encounter for other preprocedural examination, Z90.49 - Acquired absence of other specified parts of digestive tract TSH reflex Free T4 Today E66.01 - Morbid (severe) obesity due to excess calories, Z01.818 - Encounter for other preprocedural examination, Z90.49 - Acquired absence of other specified parts of digestive tract Vitamin A Today E66.01 - Morbid (severe) obesity due to excess calories, Z01.818 - Encounter for other preprocedural examination, Z90.49 - Acquired absence of other specified parts of digestive tract Vitamin B1 Today E66.01 - Morbid (severe) obesity due to excess calories, Z01.818 - Encounter for other preprocedural examination, Z90.49 - Acquired absence of other specified parts of digestive tract Vitamin D 25-OH Total Today E66.01 - Morbid (severe) obesity due to excess calories, Z01.818 - Encounter for other preprocedural examination, Z90.49 - Acquired absence of other specified parts of digestive tract Zinc Today E66.01 - Morbid (severe) obesity due to excess calories, Z01.818 - Encounter for other preprocedural examination, Z90.49 - Acquired absence of other specified parts of digestive tract ECG 12 lead EKG Today E66.01 - Morbid (severe) obesity due to excess calories, Z01.818 - Encounter for other preprocedural examination, Z90.49 - Acquired absence of other specified parts of digestive tract FL upper GI w air Today E66.01 - Morbid (severe) obesity due to excess calories, Z01.818 - Encounter for other preprocedural examination, Z90.49 - Acquired absence of other specified parts of digestive tract Complete Blood Count Auto Diff Today E66.01 - Morbid (severe) obesity due to excess calories, Z01.818 - Encounter for other preprocedural examination, Z90.49 - Acquired absence of other specified parts of digestive tract H Pylori Breath Test Today E66.01 - Morbid (severe) obesity due to excess calories, Z01.818 - Encounter for other preprocedural examination, Z90.49 - Acquired absence of other specified parts of digestive tract US abdomen comp w elastography Today E66.01 - Morbid (severe) obesity due to excess calories, Z01.818 - Encounter for other preprocedural examination, Z90.49 - Acquired absence of other specified parts of digestive tract XR chest 2V Today E66.01 - Morbid (severe) obesity due to excess calories, Z01.818 - Encounter for other preprocedural examination, Z90.49 - Acquired absence of other specified parts of digestive tract Referrals Behavioral Health Referral E66.01 - Morbid (severe) obesity due to excess calories, Z01.818 - Encounter for other preprocedural examination, Z90.49 - Acquired absence of other specified parts of digestive tract Nutrition/Dietitian Referral E66.01 - Morbid (severe) obesity due to excess calories, Z01.818 - Encounter for other preprocedural examination, Z90.49 - Acquired absence of other specified parts of digestive tract Coding Level of Care Code New Pt Level 5 (11109) Diagnoses Morbid obesity E66.01 Hx of laparoscopic gastric banding Z98.84 Pre-op evaluation Z01.818 History of laparoscopic cholecystectomy Z90.49
[2023-03-13 11:05] VITALS: BP 138/77; PULSE 71; TEMP 36.5; O2SAT 97; BMI 56.9
== END 2023-03-13 12:09 | disposition home or self-care (01) ==
PROVIDERS: PCP Internal Medicine; Visit Provider Physician Assistant
DX: E66.01 Morbid (severe) obesity due to excess calories (principal); Z68.43 Body mass index [BMI] 50.0-59.9, adult; Z98.84 Bariatric surgery status; Z90.49 Acquired absence of other specified parts of digestive tract
CPT/HCPCS: 99205

== ENCOUNTER 2023-06-29 17:19 | Outpatient (AMB) | payer OTHER, SELFPAY ==
[2023-06-29 17:28] VITALS: BP 124/80; PULSE 83; O2SAT 95; BMI 56.8
--- NOTE | 2023-06-29 17:28 | MHC.PC.OV ---
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 Accompanied by: Self / Same As Patient Allergies No Known Allergies [No Known Allergies*] Allergy (Verified 06/29/23 19:13) Medication List - Last Reconciled 06/29/23 by Alireza Garcia MD multivitamin 1 tab PO DAILY Tobacco use date assessed: 06/29/23 Dental Screening Dental Screen Date: 06/29/23 Did you have a dental visit in the last 12 months?: Yes Did you have a dental problem in the last 6 months where you did not have access to dental care?: No Was dental information given to patient?: Patient has dentist HPI Fisical HPI Details Patient comes in today for her annual physical examination States that she has been experiencing recurrent sharp pains over her left leg for a few weeks now Notes that the pain is mostly over the posterior aspect of her leg, specifically over the muscles located above and below the left popliteal fossa and states that the pain is more prominent when she is going/climbing up stairs and with prolonged walking (has no significant pain when she is going down the stairs) States that the pain tends to ease up when she lifts her leg up above her body (she often lies down on the bed and props her left leg up on a wall beside the bed) States that her left knee does not hurt and she has not noticed any swelling of her left leg, left ankle or left foot and has not seen any evidence of varicose veins over the painful areas on her left leg Also denies any history of injury or trauma to her left leg States that she has an appointment to see Dr. Coates again for bariatric surgery follow up on 07/27/2023 and that she has some test for her stomach scheduled for about 10 days later at [facility] on 08/07/2023 Relates that she has been experiencing recurrent epigastric and upper abdominal pain and discomfort lately and thinks that these may be due to her lap band, which she's had for many years but based on her recent Rx, it appears that she was treated for H. pylori back in March 2023 She denies any nausea or vomiting and no change in bowel habits noted She denies any headaches or dizziness Denies any chest pains, no increased SOB Denies any acute urinary symptoms Had her last mammogram done at [facility] earlier this year and she is scheduled for her repeat mammogram in August 2023 States that she last her her pap smear and gynecology exam done back in January 2023 [facility] Medical History (Updated 06/29/23 @ 19:19 by Alireza Garcia MD) Vitamin D deficiency Pure hypercholesterolemia Morbid obesity with BMI of 50.0-59.9, adult Surgical History Previous section History of laparoscopic cholecystectomy Hx of laparoscopic gastric banding Family History Mother Hypertension Hyperlipidemia Brother Hyperlipidemia Maternal Uncle Diabetes mellitus Social History Housing: House Alcohol intake: former Patient Tobacco Use Status: Never used Tobacco service: No Current occupational status: employed Cognitive needs: No Hearing needs: No Vision needs: No Questionnaire PHQ-9 Over the last 2 weeks, how often have you been bothered by any of the following problems? 1. Little interest or pleasure in doing things: not at all 2. Feeling down, depressed, or hopeless: not at all 3. Trouble falling or staying asleep, or sleeping too much: not at all 4. Feeling tired or having little energy: not at all 5. Poor appetite or overeating: not at all 6. Feeling bad about yourself - or that you are a failure or have let yourself or your family down: not at all 7. Trouble concentrating on things, such as reading the newspaper or watching television: not at all 8. Moving or speaking so slowly that other people could have noticed. Or the opposite - being so fidgety or restless that you have been moving around a lot more than usual: not at all 9. Thoughts that you would be better off or of hurting yourself in some way: not at all Total score: 0 Depression Screening Interpretation: Negative Depression Screening Done: Yes 74044 - PHQ-9 Billing: Yes Source: Developed by Drs. Daniel Jordan, Suresh Thibodeaux and colleagues, with an educational amadeo from [employer]. Thrive Questionnaire Date Thrive assessed: 06/29/23 I am a: Patient What is your living situation today?: I have a steady place to live Within the past 12 months, did the food you bought not last and you didn't have the money to get more?: Never true Within the past 12 months, did you worry whether your food would run out before you got money to buy more?: Never true Do you have trouble paying for medicines?: No Do you have trouble getting transportation to medical appointments?: No Do you have trouble paying your heating and electricity bill?: No Do you have trouble taking care of your child, family member or friend?: No Do you have trouble with day-to-day activities such as bathing, preparing meals, shopping, managing finances, etc.?: No Are you currently unemployed and looking for a job?: No Are you interested in more education?: No Please select the resources that you would like help with: None Currently or been in a relationship where the following occur: no concerns reported AUDIT C Alcohol Use Questionnaire (AUDIT-C) 1. How often do you have a drink containing alcohol?: Monthly or less 2. How many drinks containing alcohol do you have on a typical day when you are drinking?: 1 or 2 (wine) 3. How often do you have six or more drinks on one occasion?: Never Total Score: 1 Score Reviewed/Action Taken: Yes GALA-7 AMB Questionnaire GALA-7 Date GALA - 7 assessed: 06/29/23 Feeling nervous, anxious, or on edge: 0 = Not at all Not being able to stop or control worryin = Not at all Worrying too much about different things: 0 = Not at all Trouble relaxin = Not at all Being so restless that it is hard to sit still: 0 = Not at all Becoming easily annoyed or irritable: 0 = Not at all Feeling afraid as if something awful might happen: 0 = Not at all Total GALA-7 score (0-4 normal; 5-9 mild; 10-14 moderate; 15-21 severe): 0 Source: Developed by Drs. Daniel Jordan, Suresh Thibodeaux and colleagues, with an educational amadeo from [employer]. GALA-7 Assessment Billing AGLA-7 Assessment Tool: GALA-7 Assessment 86268 Review of Systems Const Denies chills, Denies fatigue, Denies fever(s), Denies headache(s) and Denies malaise Eyes Denies blurry vision, Denies change in vision, Denies irritation and Denies itchy eyes ENT Denies dysphagia, Denies dizziness, Denies otalgia, Denies headache(s), Denies nasal congestion, Denies neck pain, Denies odynophagia, Denies sinus pain and Denies sore throat Card Denies chest pain, Denies rapid heart rate, Denies irregular heart rhythm, Denies palpitations and Denies dyspnea Resp Denies chest congestion, Denies cough, Denies dyspnea and Denies wheezing GI Reports abdominal pain (on and off, especially over the epigastric area), Denies bloating, Denies constipation, Denies dysphagia, Denies heartburn, Denies diarrhea, Denies nausea, Denies odynophagia and Denies vomiting Denies hematuria, Denies urinary frequency, Denies dysuria, Denies urinary incontinence and Denies urinary urgency Musc Details: recurrent left leg pain - see HPI for details Denies back pain, Denies arthralgias, Denies joint swelling, Denies muscle weakness and Denies neck pain Skin/Breast Denies breast pain, Denies breast mass, Denies change in pigmentation, Denies lesions, Denies rash and Denies unusual bruising Neuro Denies dizziness, Denies headache(s) and Denies paresthesias Psych Denies anxiety and Denies depression Endo Denies fatigue and Denies palpitations Keyur/Lymph Denies easy bruising Aller/Immun Denies itchy eyes and Denies wheezing Physical exam (Primary Care) Vital Signs: Last Vital Signs Pulse 83 06/29/23 17:28 BP 124/80 06/29/23 17:28 Pulse Ox 95 06/29/23 17:28 Oxygen Delivery Method Room Air 06/29/23 17:28 BMI result Body Mass Index 56.8 Tobacco/Smoking Status: Tobacco use Status Tobacco use date assessed 06/29/23 06/29/23 17:36 Patient Tobacco Use Status Never used Tobacco 06/29/23 17:36 PHQ-9: PHQ-9 Score PHQ-9: Total score 0 06/29/23 19:04 Depression Screening Interpretation: Negative Thrive Assessment: Date of Thrive Assessment Date Thrive assessed 06/29/23 06/29/23 17:36 Currently or been in a relationship where the following occur: no concerns reported Const General: no acute distress, alert and awake Orientation/consciousness: patient oriented x3 [facility] Head: Yes normocephalic and Yes atraumatic Ears: external ears normal, TM's normal bilaterally and EAC's normal General nose exam: No nasal discharge present Face and sinus: Yes normal facial exam and Yes sinuses nontender Teeth and gingiva: dentition normal Throat: Yes posterior oropharynx normal and Yes tonsils normal (no TP congestion) Eyes Eyelids: Yes eyelids normal Conjunctivae: conjunctivae normal Pupils: Equal, round and reactive pupils present EOM: EOMs intact bilaterally Neck Neck: Yes no lymphadenopathy and Yes supple Thyroid: Thyroid normal Resp Auscultation: clear to auscultation bilaterally, no rales and no wheezes Cardio Rate: regular rate Rhythm: regular rhythm Heart sounds: no murmurs GI Palpation (GI): Soft to palpation, nontender and No hepatosplenomegaly present Auscultation: normal bowel sounds General: Yes no CVA tenderness Back/Spine/Pelvis Back: no CVA tenderness Thoracic/Lumbar Spine: thoracic and lumbar spine normal to inspection Skin Lesions: no lesions Rashes: no rashes Neuro General: patient oriented x3, moves all extremities, no focal motor deficits and CN's II-XI intact bilaterally Cranial nerves: Yes Equal, round and reactive pupils present Cognition (Neuro): normal cognition Gait exam (Neuro): Normal gait present Extrem Other: No tenderness reproduced / elicited on palpation over the muscles on the posterior aspect of the left leg, both above and below the popliteal fossa General: Yes no clubbing, cyanosis or edema Left lower extremity: knee Details: no tenderness and no swelling Assessment and Plan Assessment & Plan (1) Annual physical exam: Code(s): Z00.00 - Encounter for general adult medical examination without abnormal findings Plan: Check labs Patient is currently up-to-date with her cervical and breast cancer screenings (2) Pure hypercholesterolemia: Code(s): E78.00 - Pure hypercholesterolemia, unspecified Plan: She is advised that her cholesterol levels were elevated when checked last year, with her LDL cholesterol at 157 mg/dl and total cholesterol at 211 mg/dl Reinforced low cholesterol diet Will recheck her fasting lipids COLBY for follow up (3) Pain of left lower extremity: Code(s): M79.605 - Pain in left leg Plan: Is advised that her left leg pain appears to be musculoskeletal in origin based on her description of her symptoms although they are somewhat unusual - may still be related to some pathology in her knee or popliteal fossa or may be neuropathic in origin Will send her for EMG and NCV of the left lower extremity for further evaluation (4) Chronic constipation: Code(s): K59.09 - Other constipation Plan: Encouraged increased oral fluids and dietary fiber Continue OTC stool softeners as needed (5) Vitamin D deficiency: Code(s): E55.9 - Vitamin D deficiency, unspecified Plan: Advised that her Vitamin D level was still low on her labs done last year Continue OTC Vitamin D3 1000 units QD Will recheck her Vitamin D level for follow up (6) Morbid obesity with BMI of 50.0-59.9, adult: Code(s): E66.01 - Morbid (severe) obesity due to excess calories; Z68.43 - Body mass index [BMI] 50.0-59.9, adult Plan: S/P lap banding at [facility] years ago Reinforced diet/exercise as tolerated/lose weight Follow up with bariatric surgery/weight management as scheduled Plan Follow up in 6 months or PRN Orders: Orders NE electromyogram (EMG) Today M79.605 - Pain in left leg Complete Blood Count Auto Diff Today M79.605 - Pain in left leg, Z00.00 - Encounter for general adult medical examination without abnormal findings UA CC w/rflx Micro + Cult Today M79.605 - Pain in left leg, R30.0 - Dysuria, Z00.00 - Encounter for general adult medical examination without abnormal findings Vitamin D 25-OH Total Today E55.9 - Vitamin D deficiency, unspecified, Z00.00 - Encounter for general adult medical examination without abnormal findings Erythrocyte Sedimentation Rate Today M79.605 - Pain in left leg C Reactive Protein Today M79.605 - Pain in left leg CK, Total+Isoenzymes, Serum Today M79.605 - Pain in left leg NE nerve conduction velocity Today M79.605 - Pain in left leg Comprehensive Atkinson. Panel Fast Today M79.605 - Pain in left leg, Z00.00 - Encounter for general adult medical examination without abnormal findings Lipid Panel Today E78.00 - Pure hypercholesterolemia, unspecified, M79.605 - Pain in left leg, Z00.00 - Encounter for general adult medical examination without abnormal findings TSH reflex Free T4 Today M79.605 - Pain in left leg, Z00.00 - Encounter for general adult medical examination without abnormal findings Coding Level of Care Code Est Pt Prev Care 40-64y(55264) Diagnoses Annual physical exam Z00.00 Pure hypercholesterolemia E78.00 Pain of left lower extremity M79.605 Chronic constipation K59.09 Vitamin D deficiency E55.9 Morbid obesity with BMI of 50.0-59.9, adult E66.01; Z68.43 Additional Codes GALA-7 Assessment Billing - GALA-7 Assessment Tool: GALA-7 Assessment 44171 ([id number])
== END 2023-06-29 17:55 | disposition home or self-care (01) ==
LOC: HO.HMGH 17:19
PROVIDERS: PCP Internal Medicine; Visit Provider Internal Medicine
DX: Z00.00 Encounter for general adult medical examination without abnormal findings (principal); E66.01 Morbid (severe) obesity due to excess calories; Z68.43 Body mass index [BMI] 50.0-59.9, adult; E78.00 Pure hypercholesterolemia, unspecified; M79.605 Pain in left leg; K59.09 Other constipation; E55.9 Vitamin D deficiency, unspecified
CPT/HCPCS: 99396

== ENCOUNTER 2023-07-22 10:02 | Outpatient (REF) | payer OTHER, SELFPAY ==
--- NOTE | 2023-07-22 10:04 | EMG_ITS ---
Please see scanned EMG / Nerve Conduction Report. MTDD
== END 2023-07-22 10:03 | disposition home or self-care (01) ==
LOC: HO.NEURO 10:02
PROVIDERS: PCP Internal Medicine; Visit Provider Internal Medicine
DX: M79.605 Pain in left leg (principal)
CPT/HCPCS: 95885; 95909

== ENCOUNTER 2023-08-24 09:00 | Outpatient (AMB) | payer OTHER, SELFPAY ==
--- NOTE | 2023-08-24 09:15 | AM.OFFVISNUR ---
Intake Intake Visit Reasons: PPD Plant Allergies No Known Allergies [No Known Allergies*] Allergy (Verified 06/29/23 19:13) Office Meds tuberculin PPD 5 tub. unit/0.1 mL intradermal injection solution Performing Provider: Alireza Garcia MD [facility] Administered by: Leslee Ventura RN on 08/24/23 09:15 Dose Route Admin Location Dispensed Lot Number Expiration Date NDC [employer] 0.1 mL intradermal left forearm 0.1 mL [id number] 08/09/26 63019-035-27 [employer] Coding Assessment & Plan Assessment & Plan Orders: Orders AMB PPD Planted Today Z11.1 - Encounter for screening for respiratory tuberculosis
== END 2023-08-24 09:15 | disposition home or self-care (01) ==
PROVIDERS: PCP Internal Medicine; Visit Provider Internal Medicine
DX: Z11.1 Encounter for screening for respiratory tuberculosis (principal)
CPT/HCPCS: 86580

== ENCOUNTER 2023-10-10 08:02 | Outpatient (REF) | payer OTHER, SELFPAY ==
[2023-10-10 08:28] LABS: MANUAL DIFF FLAG NO
[2023-10-10 08:39] LABS: Basophils Absolute Auto 0.1 X10*3/uL (0.0-0.2); Basophils Percent Auto 0.8 % (0-2); Eosinophils Absolute Auto 0.2 X10*3/uL (0.0-0.4); Eosinophils Percent Auto 3.8 % (0-4); Hematocrit 37.2 % (37.0-47.0); Hemoglobin 11.8 g/dl (12.0-16.0); Imm Gran Abs Auto 0.02 X10*3/uL (0.00-0.03); Imm Gran Pct Auto 0.3 % (0.0-0.4); Lymphocytes Absolute Auto 1.8 X10*3/uL (1.2-4.9); Lymphocytes Percent Auto 29.6 % (20-40); Mean Corpuscular HGB Conc 31.7 g/dl (31.0-35.0); Mean Corpuscular Hemoglobin 26.3 pg (27.0-33.0); Mean Corpuscular Volume 82.9 fL (80.0-98.0); Monocytes Absolute Auto 0.4 X10*3/uL (0.1-1.2); Monocytes Percent Auto 6.4 % (2-11); Neutrophils Absolute Auto 3.6 x10*3/uL (2.0-8.3); Neutrophils Percent Auto 59.1 % (45-73); Platelet Count 294 X10*3/uL (160-400); Red Blood Count 4.49 X10*6/uL (4.20-5.50); White Blood Count 6.1 X10*3/uL (4.8-10.8)
[2023-10-10 09:09] LABS: Alanine Aminotransferase 8 U/L (0-31); Albumin Level 3.8 g/dL (3.5-5.0); Alkaline Phosphatase 78 U/L (39-117); Anion Gap 10 (12-20); Aspartate Amino Transferase 12 U/L (5-31); Bilirubin Total 1.2 mg/dL (0.0-1.0); Blood Urea Nitrogen 12 mg/dL (9-16); C Reactive Protein 0.33 mg/dL (< or = 0.50); Carbon Dioxide 27 mmol/L (22-29); Chloride 110 mmol/L (96-108); Cholesterol 161 mg/dL (<200); Estimated Glomerular Filt Rate > 60; Glucose Fasting 98 mg/dL (60-99); HDL Cholesterol 34 mg/dL (>40); LDL Cholesterol Calculated 113 mg/dL (<100); Sodium 143 mmol/L (135-145); Total Protein 6.6 g/dL (6.5-8.0); Triglycerides 72 mg/dL (<150)
[2023-10-10 09:15] LABS: Appearance Urine Cloudy; Color Urine Dark Yellow; Glucose Urine UA Negative (Negative); Urine Blood Large (3+) (Negative); Urine Protein 30 (1+) mg/dL (Neg-Trace)
[2023-10-10 09:16] LABS: Leukocyte Esterase Urine Small (1+) (Negative); Nitrite Urine Negative (Negative); UMIC TRIGGER UACC YES; Urine Ketones Negative (Negative)
[2023-10-10 09:17] LABS: Bacteria Urine None Seen (None Seen); Hyaline Casts Urine 0-2 /LPF (0-2); RBC Urine >20 /HPF (0-2); Squamous Epithelial Cell Urine 0-2 /HPF (0-2); UACC Culture Trigger YES
[2023-10-10 09:26] LABS: Erythrocyte Sedimentation Rate 11 MM/HR (0-20)
[2023-10-10 09:27] LABS: TSH reflex Free T4 0.88 uIU/mL (0.32-4.0); Vitamin D 25-OH Total 24.2 ng/mL (>30)
[2023-10-15 21:28] LABS: CK-BB None Detected (None Detected); CK-MB 0 % (<5); CK-MM 100 % (95-100); Creatine Kinase,Total,Serum 98 U/L (29-143)
== END 2023-10-10 08:03 | disposition home or self-care (01) ==
LOC: HO.LAB 08:02
PROVIDERS: PCP Internal Medicine; Visit Provider Internal Medicine
DX: Z00.00 Encounter for general adult medical examination without abnormal findings (principal); M79.605 Pain in left leg; E55.9 Vitamin D deficiency, unspecified; E78.00 Pure hypercholesterolemia, unspecified
CPT/HCPCS: 36415; 80053; 80061; 81001; 82306; 82552; 84443; 85025; 85652; 86140; 87086; 87147

== ENCOUNTER 2023-10-12 09:04 | Outpatient (AMB) | payer OTHER, SELFPAY ==
--- NOTE | 2023-10-12 09:58 | AM.OFFWIN_ITS ---
Intake Vital Signs 10/12/23 10:08 Height 5 ft 4 in Weight 309 lb BMI 53.0 BP 126/76 Blood Pressure Location Lt brachial Position Sitting Pulse 66 Pulse Source Pulse Oximeter Temp 97.5 F Temp Source Temporal Artery Scan Pulse Oximetry (%) 99 Oxygen Delivery Method Room Air Intake Visit Reasons: EST/chest pain (lobby ) Intake Note: pt is here today for chest pain started 2 days ago Patient Tobacco Use Status: Never used Tobacco Allergies No Known Allergies [No Known Allergies*] Allergy (Verified 10/12/23 10:37) Medication List - Last Reconciled 10/12/23 by Gab Hurst MD multivitamin 1 tab PO DAILY Do you need a note to return to daycare/school/sports/work: No HPI EST/chest pain (lobby ) HPI Details 43-year-old female presents to [facility] for a sick visit. Patient reports epigastric discomfort in the past 3 days. Patient had Lap band surgery in 2011. In 2021, the band was removed due to persisting epigastric discomfirt. She is having similar complaints for the past three days. No belching or burping. Currently she has no symptoms. No fevers or chills. No pain on exertion. [facility] Medical History (Updated 06/29/23 @ 19:19 by Alireza Garcia MD) Vitamin D deficiency Pure hypercholesterolemia Morbid obesity with BMI of 50.0-59.9, adult Surgical History Previous section History of laparoscopic cholecystectomy Hx of laparoscopic gastric banding Family History Mother Hypertension Hyperlipidemia Brother Hyperlipidemia Maternal Uncle Diabetes mellitus Social History Housing: House Alcohol intake: former Patient Tobacco Use Status: Never used Tobacco service: No Current occupational status: employed Cognitive needs: No Hearing needs: No Vision needs: No Physical Exam Vital Signs: Last Vital Signs Temp 97.5 F 10/12/23 10:08 Pulse 66 10/12/23 10:08 BP 126/76 10/12/23 10:08 Pulse Ox 99 10/12/23 10:08 Oxygen Delivery Method Room Air 10/12/23 10:08 BMI result Body Mass Index 53.0 Const General: cooperative and healthy appearing Nutritional Appearance: well nourished Orientation/consciousness: patient oriented x3 Limitations: no limitations HEENT Head: Yes normal to inspection Eyes General: appearance normal, both eyes and all related structures Neck Neck: Yes normal visual inspection Chest Chest palpation & inspection: normal palpation of entire chest wall Resp Effort & Inspection: normal respiratory effort Neuro General: patient oriented x3 Office Procedures EKG Details: NSR [id number], Complete Assessment & Plan Assessment & Plan (1) Chest pain: Code(s): R07.9 - Chest pain, unspecified Plan: Cxr is in range. EKG is normal. Presumed GERD and trial of PPI. If sx do not improve to follow up with PCP. Orders: Orders AMB EKG-In Office Today R07.9 - Chest pain, unspecified XR chest 2V Today R05.9 - Cough, unspecified Medications: New pantoprazole 40 mg PO DAILY 30 tabs 0RF Coding Level of Care Code Est Pt Level 4 (83270) Diagnoses Chest pain R07.9 CPT Codes EKG - CPT: 10484-[id number], Complete ([id number])
[2023-10-12 10:08] VITALS: BP 126/76; PULSE 66; TEMP 36.4; O2SAT 99; BMI 53.0
== END 2023-10-12 11:24 | disposition home or self-care (01) ==
PROVIDERS: PCP Internal Medicine; Visit Provider Internal Medicine
DX: R07.9 Chest pain, unspecified (principal)
CPT/HCPCS: 93000; 99214

== ENCOUNTER 2023-10-12 10:33 | Outpatient (REF) | payer OTHER, SELFPAY ==
--- NOTE | ~2023-10-12 | XR_ITS ---
EXAMINATION: XR CHEST CLINICAL INFORMATION: Cough. COMPARISON: 06/21/2021 TECHNIQUE: 2 views of the chest were obtained. FINDINGS: The lungs are moderately expanded. No focal consolidation. No pleural effusion. Cardiac silhouette is unchanged. XR/XR chest 2V IMPRESSION: No acute abnormality.
== END 2023-10-12 10:34 | disposition home or self-care (01) ==
LOC: HO.HMGCX 10:33
PROVIDERS: Visit Provider Internal Medicine
DX: R05.9 Cough, unspecified (principal)
CPT/HCPCS: 71046

== ENCOUNTER 2023-10-15 12:23 | Outpatient (AMB) | payer OTHER, SELFPAY ==
[2023-10-15 12:24] VITALS: BP 124/80; PULSE 73; O2SAT 97; BMI 52.2
--- NOTE | 2023-10-15 12:24 | MHC.PC.OV ---
Vital Signs 10/15/23 12:24 Height 5 ft 4 in Weight 304 lb BMI 52.2 BP 124/80 Blood Pressure Location Lt brachial Position Sitting Pulse 73 Pulse Source Pulse Oximeter Pulse Oximetry (%) 97 Oxygen Delivery Method Room Air Intake Visit Reasons: Follow up chest pain seen at [facility] Required: No Accompanied by: Self / Same As Patient Allergies No Known Allergies [No Known Allergies*] Allergy (Verified 10/15/23 14:14) Medication List - Last Reconciled 10/15/23 by Alireza Garcia MD multivitamin 1 tab PO DAILY pantoprazole 40 mg PO DAILY Tobacco use date assessed: 10/15/23 Dental Screening Dental Screen Date: 10/15/23 Did you have a dental visit in the last 12 months?: Yes Did you have a dental problem in the last 6 months where you did not have access to dental care?: No Was dental information given to patient?: Patient has dentist HPI Follow up chest pain seen at [facility] HPI Details Patient comes in today complaining of persistent pain over her lower chest area, which she states has been present for about 1 week now States that the pain used to occur on and off until this past week, and the pain is presently at 8 on a scale of 1 to 10 pain scale Patient points to a particular spot on her left lower sternal area just an inch or two above the xiphoid process as to where the pain is, and that the pain is NOT aggravated or made worse with deep palpation or pressure States that the pain is also not affected or relieved by movement or when she twists or turns her torso side to side; it does not seem to be affected as well by deep breathing or coughing States that she has no problems eating, drinking or swallowing and these have no effect as well on her chest pain She went to the walk-in clinic in [place] a few days ago for the same complaint and was sent for chest x-rays, which came out normal EKG done at the walk-in also came back okay, with only sinus bradycardia noted Relates that she had Dr. Coates remove her lap band back in August (2023) as she thought that a lot of her recent symptoms, including her chest pains, were related to the band, which she's had since 2011, but reports that her symptoms did not resolve after her lap band removal She had some additional labs done a few days ago for further evaluation - her labs came out normal, with ESR and CRP normal as well, although her CK-isoenzymes are still pending Patient denies any SOB and states that her chest pains are not related to activity or exertion She denies any headaches or dizziness No nausea/vomiting, no abdominal pain No change in bowel habits noted She was also started on Omeprazole at the walk-in a few days ago but does not feel that the Rx is helping [facility] Medical History Vitamin D deficiency Pure hypercholesterolemia Morbid obesity with BMI of 50.0-59.9, adult Surgical History Previous section History of laparoscopic cholecystectomy Hx of laparoscopic gastric banding Family History Mother Hypertension Hyperlipidemia Brother Hyperlipidemia Maternal Uncle Diabetes mellitus Social History Housing: House Alcohol intake: former Patient Tobacco Use Status: Never used Tobacco service: No Current occupational status: employed Cognitive needs: No Hearing needs: No Vision needs: No Questionnaire PHQ-9 Over the last 2 weeks, how often have you been bothered by any of the following problems? 1. Little interest or pleasure in doing things: not at all 2. Feeling down, depressed, or hopeless: not at all 3. Trouble falling or staying asleep, or sleeping too much: not at all 4. Feeling tired or having little energy: not at all 5. Poor appetite or overeating: not at all 6. Feeling bad about yourself - or that you are a failure or have let yourself or your family down: not at all 7. Trouble concentrating on things, such as reading the newspaper or watching television: not at all 8. Moving or speaking so slowly that other people could have noticed. Or the opposite - being so fidgety or restless that you have been moving around a lot more than usual: not at all 9. Thoughts that you would be better off or of hurting yourself in some way: not at all Total score: 0 Depression Screening Interpretation: Negative Depression Screening Done: Yes 39402 - PHQ-9 Billing: Yes Source: Developed by Drs. Daniel Jordan, Ruby Aguirre, Suresh Tucker and colleagues, with an educational amadeo from [employer]. Thrive Questionnaire Date Thrive assessed: 10/15/23 I am a: Patient What is your living situation today?: I have a steady place to live Within the past 12 months, did the food you bought not last and you didn't have the money to get more?: Never true Within the past 12 months, did you worry whether your food would run out before you got money to buy more?: Never true Do you have trouble paying for medicines?: No Do you have trouble getting transportation to medical appointments?: No Do you have trouble paying your heating and electricity bill?: No Do you have trouble taking care of your child, family member or friend?: No Do you have trouble with day-to-day activities such as bathing, preparing meals, shopping, managing finances, etc.?: No Are you currently unemployed and looking for a job?: No Are you interested in more education?: No Please select the resources that you would like help with: None Currently or been in a relationship where the following occur: no concerns reported THRIVE Score: 0 AUDIT C Alcohol Use Questionnaire (AUDIT-C) 1. How often do you have a drink containing alcohol?: Monthly or less 2. How many drinks containing alcohol do you have on a typical day when you are drinking?: 1 or 2 (wine) 3. How often do you have six or more drinks on one occasion?: Never Total Score: 1 Score Reviewed/Action Taken: Yes GALA-7 AMB Questionnaire GALA-7 Date GALA - 7 assessed: 10/15/23 Feeling nervous, anxious, or on edge: 0 = Not at all Not being able to stop or control worryin = Not at all Worrying too much about different things: 0 = Not at all Trouble relaxin = Not at all Being so restless that it is hard to sit still: 0 = Not at all Becoming easily annoyed or irritable: 0 = Not at all Feeling afraid as if something awful might happen: 0 = Not at all Total GALA-7 score (0-4 normal; 5-9 mild; 10-14 moderate; 15-21 severe): 0 Source: Developed by Drs. Daniel Jordan, Ruby Aguirre, Suresh Tucker and colleagues, with an educational amadeo from [employer]. GALA-7 Assessment Billing GALA-7 Assessment Tool: GALA-7 Assessment 11849 Review of Systems Const Denies fatigue, Denies fever(s) and Denies headache(s) ENT Denies dysphagia, Denies dizziness, Denies otalgia, Denies headache(s), Denies neck pain, Denies odynophagia and Denies sore throat Card Reports chest pain (mostly over the left lower sternum - see HPI), Denies rapid heart rate, Denies irregular heart rhythm, Denies palpitations and Denies dyspnea Resp Denies chest congestion, Denies cough, Denies dyspnea and Denies wheezing GI Reports abdominal pain (on and off, especially over the epigastric area), Denies constipation, Denies dysphagia, Denies heartburn, Denies diarrhea, Denies nausea, Denies odynophagia and Denies vomiting Denies urinary frequency, Denies dysuria and Denies urinary incontinence Musc Denies back pain, Denies arthralgias and Denies neck pain Skin/Breast Denies rash Neuro Denies dizziness, Denies headache(s) and Denies paresthesias Psych Denies anxiety and Denies depression Endo Denies fatigue and Denies palpitations Keyur/Lymph Denies easy bruising Aller/Immun Denies wheezing Physical exam (Primary Care) Vital Signs: Last Vital Signs Pulse 73 10/15/23 12:24 BP 124/80 10/15/23 12:24 Pulse Ox 97 10/15/23 12:24 Oxygen Delivery Method Room Air 10/15/23 12:24 BMI result Body Mass Index 52.2 Tobacco/Smoking Status: Tobacco use Status Tobacco use date assessed 10/15/23 10/15/23 12:30 Patient Tobacco Use Status Never used Tobacco 10/15/23 12:30 PHQ-9: PHQ-9 Score PHQ-9: Total score 0 10/15/23 12:55 Depression Screening Interpretation: Negative Thrive Assessment: Date of Thrive Assessment Date Thrive assessed 10/15/23 10/15/23 12:30 Currently or been in a relationship where the following occur: no concerns reported Const General: no acute distress and alert HENMT Throat: Yes posterior oropharynx normal and Yes tonsils normal (no TP congestion) Neck Neck: Yes no lymphadenopathy and Yes supple Thyroid: Thyroid normal Chest Other: no tenderness is elicited on deep palpation over the left lower sternal area although patient is pointing to the area where the pain is - feels that the pain is deep inside Chest palpation & inspection: normal inspection of the chest and tenderness Resp Auscultation: clear to auscultation bilaterally, no rales and no wheezes Cardio Rate: regular rate Rhythm: regular rhythm Heart sounds: no murmurs GI Palpation (GI): Soft to palpation and nontender Auscultation: normal bowel sounds General: Yes no CVA tenderness Back/Spine/Pelvis Back: no CVA tenderness Skin Rashes: no rashes Extrem General: Yes no clubbing, cyanosis or edema Results Reviewed Results Reviewed: Laboratory Tests 10/10/23 10/10/23 10/10/23 08:19 08:19 08:19 WBC Hgb Hct Plt Count ESR Sodium Potassium Creatinine Estimated GFR Fasting Glucose Calcium AST ALT C-Reactive Protein Triglycerides Cholesterol LDL Cholesterol, Calc HDL Cholesterol 25-OH Vitamin D Total TSH Ur Specific [place] 1.020 Urine Protein 30 (1+) H Urine Glucose (UA) Negative Urine Blood Large (3+) H Urine Nitrite Negative Ur Leukocyte Esterase Small (1+) H 10/10/23 10/10/23 10/10/23 08:21 08:21 08:21 WBC 6.1 Hgb 11.8 L Hct 37.2 Plt Count 294 ESR 11 Sodium 143 Potassium 4.0 Creatinine 0.77 Estimated GFR > 60 Fasting Glucose 98 Calcium 9.0 D AST 12 ALT 8 C-Reactive Protein 0.33 Triglycerides 72 Cholesterol 161 LDL Cholesterol, Calc 113 H HDL Cholesterol 34 L 25-OH Vitamin D Total 24.2 L TSH 0.88 Ur Specific [place] Urine Protein Urine Glucose (UA) Urine Blood Urine Nitrite Ur Leukocyte Esterase Assessment and Plan Assessment & Plan (1) Chest pain: Code(s): R07.9 - Chest pain, unspecified Qualifiers: Chest pain type: unspecified Qualified Code(s): R07.9 - Chest pain, unspecified Plan: Have discussed with patient that it is not clear at this time where her pain is actually originating from or occurring at as she points to her left lower sternal area as to the location of her pain but we cannot seem to reproduce or trigger or even aggravate her symptoms with deep palpation and percussion of the said area Advised that her recent EKG, CXR and labs have all come back completely normal She even had her lap band that was placed back in [address] Coates in August 2023, thinking that her pain may be related to her lap band, but states that she has not noticed any significant improvement since she had it removed a couple of months ago Advised that there is still a possibility that her symptoms may be related to her lap band procedure and are originating from her gastric area so she should continue on her Pantoprazole 40 mg QD Will send her for cardiac stress testing for further evaluation (in case her symptoms are cardiac in origin although this is unlikely) and advised that if her cardiac testing comes out completely normal, then the only logical source of her pain would be gastric, and she may need to see GI and possible have an EGD done for further evaluation Plan Follow up as scheduled in December 2023 Orders: Orders CA cardiopulmonary stress test Today R07.9 - Chest pain, unspecified Coding Level of Care Code Est Pt Level 4 (13098) Diagnoses Chest pain, unspecified type R07.9 Chest pain type: unspecified Additional Codes GALA-7 Assessment Billing - GALA-7 Assessment Tool: GALA-7 Assessment [id number] ([id number])
== END 2023-10-15 13:04 | disposition home or self-care (01) ==
PROVIDERS: PCP Internal Medicine; Visit Provider Internal Medicine
DX: R07.9 Chest pain, unspecified (principal)
CPT/HCPCS: 99214

== ENCOUNTER 2023-10-17 07:51 | Emergency (ER) | payer OTHER, SELFPAY ==
--- NOTE | ~2023-10-17 | XR_ITS ---
EXAMINATION: XR FOOT, LEFT CLINICAL INFORMATION: Pain left foot COMPARISON: None available. TECHNIQUE: AP, lateral, and oblique views of the left foot. FINDINGS: There is a small calcaneal heel and retrocalcaneal enthesophytes. Ankle mortise and subtalar joints are normal. There is no visible acute fracture, dislocation or subluxation seen. XR/XR foot LT min 3V IMPRESSION: Small calcaneal heel and retrocalcaneal enthesophytes. No visible acute fracture or dislocation seen.
[2023-10-17 07:55] VITALS: BP 153/92; PULSE 68; RESP 16; TEMP 36; O2SAT 98; BMI 58.4
--- NOTE | 2023-10-17 08:07 | ED.EXTPRO ---
HPI - Extremity Problem General Chief complaint: Extremity Problem Stated complaint: LT foot pain Time Seen by Provider: 10/17/23 08:03 Source: patient Mode of arrival: wheelchair Limitations: no limitations History of Present Illness HPI Narrative: Patient is a 43-year-old female who presents emergency department for evaluation of left heel pain. Reports onset 1 month ago which was minimal and has progressively worsened. Pain is becoming more intolerable. Has tried Tylenol without much improvement. Reports pain is worse with weight-bearing and while barefoot. She does admit to having some relief when she is wearing a sneaker and walking. Denies any history of similar pain in the past. Denies any numbness tingling or cold sensation to the foot. Denies any trauma/injury. Related Data Home Medications Medication Instructions Recorded Confirmed multivitamin 1 tab PO DAILY 02/11/23 10/15/23 Previous Rx's Medication Instructions Recorded pantoprazole 40 mg tablet,delayed 40 mg PO DAILY #30 tabs 10/12/23 release Allergies Allergy/AdvReac Type Severity Reaction Status Date / Time No Known Allergies Allergy Verified 10/15/23 14:14 [No Known Allergies*] Review of Systems Review of Systems: Yes all other systems are reviewed and are negative PMFSH Past Medical History Attestation statement: The following information was validated with the patient. Source: old records reviewed Medical History Vitamin D deficiency Pure hypercholesterolemia Morbid obesity with BMI of 50.0-59.9, adult Surgical History Previous section History of laparoscopic cholecystectomy Hx of laparoscopic gastric banding Family History Family History Mother Hypertension Hyperlipidemia Brother Hyperlipidemia Maternal Uncle Diabetes mellitus Social History Social History Housing: House Alcohol intake: former Patient Tobacco Use Status: Never used Tobacco Advance Directives: No Advance Directives Information Provided: No service: No Current occupational status: employed Cognitive needs: No Hearing needs: No Vision needs: No Physical Exam Vital Signs: Vital Signs: Last Vital Signs Temp 96.8 F 10/17/23 07:55 Pulse 68 10/17/23 07:55 Resp 16 10/17/23 07:55 BP 153/92 H 10/17/23 07:55 Pulse Ox 98 10/17/23 07:55 O2 Del Method Room Air 10/17/23 07:55 BMI result Body Mass Index 58.4 Appearance: Alert.?Oriented to person, place and time. No acute distress.?Normal affect. Neck: Normal inspection.? Neck supple.?? CVS: Heart sounds normal. Normal heart rate and rhythm.? Pulses normal.?? Respiratory: No respiratory distress.? Lung sounds clear to auscultation bilaterally?? Skin: Skin warm and dry.? Normal skin color.? No rashes or lesions? Extremities: No lower extremity edema.? No calf ttp. Diffuse tenderness upon palpation to left heel. 2+ DP/PT pulse bilaterally. ? Neuro: Moves all extremities spontaneously. Sensation intact bilaterally. Ambulates with antalgic gait. Medical Decision Making Medical Decision Making MDM Narrative: Patient is a 43-year-old female who presents emergency department for evaluation of left heel pain. History and physical examination most consistent with plantar fasciitis, XR obtained which is without acute fracture dislocation but does reveal bone spurs. Clinically not consistent with Achilles tendon rupture, wells negative not consistent with DVT, no signs of cellulitis or wound/lesions. 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 All questions answered. Stable for discharge. Differential Diagnosis Differential Diagnoses: The differential diagnosis associated with the presentation includes (See narrative above) Independent Interpretation I performed an independent interpretation of an: Plain X-Ray (Positive bone spur, no fracture) Radiology Impression Discussion of test interpretation with radiology: I have reviewed the radiologist's reading. Radiologist Impression: XR/XR foot LT min 3V IMPRESSION: Small calcaneal heel and retrocalcaneal enthesophytes. No visible acute fracture or dislocation seen. Independent Historian Clinical information obtained from an independent historian. History obtained from or confirmed by: Spouse (Present who confirms history) Prescription Management I considered prescription management with: Pain Medication (Acetaminophen/ibuprofen) Discharge Plan Discharge Clinical Impression: Plantar fasciitis of left foot Patient Disposition: Home, Self-Care Instructions: Plantar Fasciitis (ED), Plantar Fasciitis Exercises (ED) Additional Instructions: Your x-ray does reveal that you have a heel spur as discussed. You can take ibuprofen 200 mg, 3 tablets (600mg) every 6-8 hours as needed for pain, in addition to Tylenol 500 mg, 2 tablets (1,000mg) every 4-6 hours as needed for pain, but not to exceed 3 doses daily (3,000mg).? As discussed, consider purchasing [id number] heel inserts to provide additional cushion. Refrain from walking barefoot as this may worsen your pain Schedule a follow-up appointment your primary care provider, as discussed you may inquire about a referral to Podiatry and possible orthotics Prescriptions: No Action pantoprazole 40 mg tablet,delayed release (DR/EC) 40 mg PO DAILY Qty: 30 0RF multivitamin Tablet 1 tab PO DAILY Referrals: Alireza Garcia MD [Primary Care Provider] -
[2023-10-17] MEDS: Ketorolac Tromethamine 30 MG/ML VIAL IM (09:06)
== END 2023-10-17 09:13 | disposition home or self-care (01) ==
PROVIDERS: Emergency Provider Student in an Organized Health Care Education/Training Program; PCP Internal Medicine
DX: M72.2 Plantar fascial fibromatosis (principal); M79.672 Pain in left foot
CPT/HCPCS: 73630; 96372; 99283; 99284; J1885

== ENCOUNTER 2023-10-22 12:23 | Outpatient (AMB) | payer OTHER, SELFPAY ==
[2023-10-22 12:24] VITALS: BP 122/80; PULSE 73; O2SAT 97; BMI 52.4
--- NOTE | 2023-10-22 12:24 | MHC.PC.OV ---
Vital Signs 10/22/23 12:24 Height 5 ft 4 in Weight 305 lb 4 oz BMI 52.4 BP 122/80 Blood Pressure Location Lt brachial Position Sitting Pulse 73 Pulse Source Pulse Oximeter Pulse Oximetry (%) 97 Oxygen Delivery Method Room Air Intake Visit Reasons: Foot pain Forensic Psychologist Required: No Accompanied by: Self / Same As Patient Allergies No Known Allergies [No Known Allergies*] Allergy (Verified 10/22/23 12:42) Medication List - Last Reconciled 10/22/23 by Alireza Garcia MD multivitamin 1 tab PO DAILY pantoprazole 40 mg PO DAILY Tobacco use date assessed: 10/22/23 Dental Screening Dental Screen Date: 10/22/23 Did you have a dental visit in the last 12 months?: Yes Did you have a dental problem in the last 6 months where you did not have access to dental care?: No Was dental information given to patient?: Patient has dentist HPI Foot pain HPI Details Patient comes in today complaining of increased pain over her left foot States that she just woke up with increased pain in her foot 5 days ago (10/17/2023), especially over the plantar aspect of her foot and that the pain feels worse when she puts her weight on her foot and when she is walking barefoot She went to the ER, where she had x-rays done for further evaluation X-rays revealed (+) heel spurs and enthesophytes She was given something to help relieve the pain and advised to see her PCP for follow up and possible referral to podiatry States that her left foot pain remains mostly unchanged and that she has to walk with her sneakers on or the pain becomes unbearable She denies any recent injury or trauma to her left foot No other acute complaints or symptoms are noted [facility] Medical History Vitamin D deficiency Pure hypercholesterolemia Morbid obesity with BMI of 50.0-59.9, adult Surgical History Previous section History of laparoscopic cholecystectomy Hx of laparoscopic gastric banding Family History Mother Hypertension Hyperlipidemia Brother Hyperlipidemia Maternal Uncle Diabetes mellitus Social History Housing: House Alcohol intake: former Patient Tobacco Use Status: Never used Tobacco e-Cigarette/Vaping Use: Never Used service: No Current occupational status: employed Cognitive needs: No Hearing needs: No Vision needs: No Questionnaire PHQ-9 Over the last 2 weeks, how often have you been bothered by any of the following problems? 1. Little interest or pleasure in doing things: not at all 2. Feeling down, depressed, or hopeless: not at all 3. Trouble falling or staying asleep, or sleeping too much: not at all 4. Feeling tired or having little energy: not at all 5. Poor appetite or overeating: not at all 6. Feeling bad about yourself - or that you are a failure or have let yourself or your family down: not at all 7. Trouble concentrating on things, such as reading the newspaper or watching television: not at all 8. Moving or speaking so slowly that other people could have noticed. Or the opposite - being so fidgety or restless that you have been moving around a lot more than usual: not at all 9. Thoughts that you would be better off or of hurting yourself in some way: not at all Total score: 0 Depression Screening Interpretation: Negative Depression Screening Done: Yes 78193 - PHQ-9 Billing: Yes Source: Developed by Drs. Daniel Jordan, Ruby Aguirre, Suresh Tucker and colleagues, with an educational amadeo from [employer]. Thrive Questionnaire Date Thrive assessed: 10/22/23 I am a: Patient What is your living situation today?: I have a steady place to live Within the past 12 months, did the food you bought not last and you didn't have the money to get more?: Never true Within the past 12 months, did you worry whether your food would run out before you got money to buy more?: Never true Do you have trouble paying for medicines?: No Do you have trouble getting transportation to medical appointments?: No Do you have trouble paying your heating and electricity bill?: No Do you have trouble taking care of your child, family member or friend?: No Do you have trouble with day-to-day activities such as bathing, preparing meals, shopping, managing finances, etc.?: No Are you currently unemployed and looking for a job?: No Are you interested in more education?: No Please select the resources that you would like help with: None Currently or been in a relationship where the following occur: no concerns reported THRIVE Score: 0 AUDIT C Alcohol Use Questionnaire (AUDIT-C) 1. How often do you have a drink containing alcohol?: Monthly or less 2. How many drinks containing alcohol do you have on a typical day when you are drinking?: 1 or 2 (wine) 3. How often do you have six or more drinks on one occasion?: Never Total Score: 1 Score Reviewed/Action Taken: Yes GALA-7 AMB Questionnaire GALA-7 Date GALA - 7 assessed: 10/22/23 Feeling nervous, anxious, or on edge: 0 = Not at all Not being able to stop or control worryin = Not at all Worrying too much about different things: 0 = Not at all Trouble relaxin = Not at all Being so restless that it is hard to sit still: 0 = Not at all Becoming easily annoyed or irritable: 0 = Not at all Feeling afraid as if something awful might happen: 0 = Not at all Total GALA-7 score (0-4 normal; 5-9 mild; 10-14 moderate; 15-21 severe): 0 Source: Developed by Drs. Daniel Jordan, Ruby Aguirre, Suresh Tucker and colleagues, with an educational amadeo from [employer]. GALA-7 Assessment Billing GALA-7 Assessment Tool: GALA-7 Assessment 22611 Review of Systems Const Denies fatigue, Denies fever(s) and Denies headache(s) ENT Denies dizziness, Denies headache(s), Denies neck pain and Denies sore throat Card Denies chest pain, Denies palpitations and Denies dyspnea Resp Denies cough and Denies dyspnea GI Denies abdominal pain, Denies change in bowel habits, Denies nausea and Denies vomiting Musc Details: increased pain over the plantar aspect of the left foot Denies back pain and Denies neck pain Neuro Denies dizziness and Denies headache(s) Endo Denies fatigue and Denies palpitations Physical exam (Primary Care) Vital Signs: Last Vital Signs Pulse 73 10/22/23 12:24 BP 122/80 10/22/23 12:24 Pulse Ox 97 10/22/23 12:24 Oxygen Delivery Method Room Air 10/22/23 12:24 BMI result Body Mass Index 52.4 Tobacco/Smoking Status: Tobacco use Status Tobacco use date assessed 10/22/23 10/22/23 12:30 Patient Tobacco Use Status Never used Tobacco 10/22/23 12:30 e-Cigarette/Vaping Use Never Used 10/22/23 12:30 PHQ-9: PHQ-9 Score PHQ-9: Total score 0 10/22/23 12:30 Depression Screening Interpretation: Negative Thrive Assessment: Date of Thrive Assessment Date Thrive assessed 10/22/23 10/22/23 12:30 Currently or been in a relationship where the following occur: no concerns reported Const General: no acute distress and alert Neck Neck: Yes no lymphadenopathy and Yes supple Resp Auscultation: clear to auscultation bilaterally, no rales and no wheezes Cardio Rate: regular rate Rhythm: regular rhythm Heart sounds: no murmurs GI Palpation (GI): Soft to palpation and nontender Extrem General: Yes no clubbing, cyanosis or edema Left lower extremity: foot Details: tenderness Location: of the plantar foot Location: proximally Assessment and Plan Assessment & Plan (1) Left foot pain: Code(s): M79.672 - Pain in left foot Plan: Suspect plantar fasciitis Left foot x-rays done a few days ago also revealed (+) calcaneal and retrocalcaneal enthesophytes, so heel spurs may be contributing to the problem as well Will send her for some labs COLBY for further evaluation Will refer her to podiatry COBLY for further evaluation and management Will send in Rx for some Tramadol 50 mg but she is advised to take these only as needed for severe pain and at night when needed to help her get some sleep until she is able to get in to see podiatry Plan Follow up as scheduled in December 2023 Orders: Orders Complete Blood Count Auto Diff Today D64.9 - Anemia, unspecified, M79.672 - Pain in left foot Erythrocyte Sedimentation Rate Today M79.672 - Pain in left foot, M79.7 - Fibromyalgia Uric Acid Today M10.9 - Gout, unspecified, M79.672 - Pain in left foot C Reactive Protein Today M79.672 - Pain in left foot Referrals Podiatry Referral M79.672 - Pain in left foot Medications: New tramadol Take as needed ONLY for severe pain 50 mg PO BID 15 days PRN 30 tabs 0RF severe pain Coding Level of Care Code Est Pt Level 3 (52389) Diagnoses Left foot pain M79.672 Additional Codes GALA-7 Assessment Billing - GALA-7 Assessment Tool: GALA-7 Assessment 40937 ([id number])
== END 2023-10-22 12:48 | disposition home or self-care (01) ==
PROVIDERS: PCP Internal Medicine; Visit Provider Internal Medicine
DX: M79.672 Pain in left foot (principal)
CPT/HCPCS: 99213

== ENCOUNTER 2023-10-22 12:54 | Outpatient (REF) | payer OTHER, SELFPAY ==
[2023-10-22 13:05] LABS: MANUAL DIFF FLAG NO
[2023-10-22 14:15] LABS: Basophils Percent Auto 0.4 % (0-2); Eosinophils Absolute Auto 0.1 X10*3/uL (0.0-0.4); Eosinophils Percent Auto 1.4 % (0-4); Hematocrit 37.5 % (37.0-47.0); Hemoglobin 11.9 g/dl (12.0-16.0); Imm Gran Abs Auto 0.03 X10*3/uL (0.00-0.03); Imm Gran Pct Auto 0.4 % (0.0-0.4); Lymphocytes Absolute Auto 1.9 X10*3/uL (1.2-4.9); Lymphocytes Percent Auto 27.4 % (20-40); Mean Corpuscular HGB Conc 31.7 g/dl (31.0-35.0); Mean Corpuscular Hemoglobin 26.2 pg (27.0-33.0); Mean Corpuscular Volume 82.6 fL (80.0-98.0); Mean Platelet Volume 9.9 fL (9.4-12.3); Monocytes Absolute Auto 0.4 X10*3/uL (0.1-1.2); Monocytes Percent Auto 5.2 % (2-11); Neutrophils Absolute Auto 4.5 x10*3/uL (2.0-8.3); Neutrophils Percent Auto 65.2 % (45-73); Platelet Count 305 X10*3/uL (160-400); Red Blood Count 4.54 X10*6/uL (4.20-5.50)
[2023-10-22 15:05] LABS: C Reactive Protein 0.52 mg/dL (< or = 0.50)
[2023-10-22 15:07] LABS: Erythrocyte Sedimentation Rate 9 MM/HR (0-20)
== END 2023-10-22 12:55 | disposition home or self-care (01) ==
LOC: HO.LAB 12:54
PROVIDERS: PCP Internal Medicine; Visit Provider Internal Medicine
DX: D64.9 Anemia, unspecified (principal); M79.672 Pain in left foot; M79.7 Fibromyalgia; M10.9 Gout, unspecified
CPT/HCPCS: 36415; 84550; 85025; 85652; 86140

== ENCOUNTER 2023-12-04 08:18 | Outpatient (AMB) | payer OTHER, SELFPAY ==
--- NOTE | 2023-12-04 08:44 | MHC.PC.OV ---
Vital Signs 12/04/23 08:45 Height 5 ft 4 in Weight 296 lb BMI 50.8 BP 116/68 Blood Pressure Location Lt brachial Position Sitting Pulse 61 Pulse Source Pulse Oximeter Pulse Oximetry (%) 99 Oxygen Delivery Method Room Air Intake Visit Reasons: PHYSICAL Intake Note: Patient is here today for a physical. Administrative Sales Assistant Required: No Cadmium Plater: Not Required per policy Accompanied by: Self / Same As Patient Allergies No Known Allergies [No Known Allergies*] Allergy (Verified 12/04/23 09:15) Medication List - Last Reconciled 12/04/23 by Alireza Garcia MD multivitamin 1 tab PO DAILY pantoprazole 40 mg PO DAILY tramadol 50 mg PO BID PRN 15 days Tobacco use date assessed: 12/04/23 Dental Screening Dental Screen Date: 10/22/23 HPI PHYSICAL HPI Details Patient comes in today for her annual physical examination States that she feels okay She denies any headaches or dizziness Denies any chest pains, no SOB No nausea/vomiting, no abdominal pain No change in bowel habits noted Denies any acute urinary symptom Needs her Tramadol Rx refilled Had her follow up labs done last month - to discuss her results She is up-to-date with her annual gynecology exam and pap smear - goes to gynecology at [facility] and her next appointment is in January 2024 She had her annual mammogram done back in September 2023 - normal/negative She had a negative TB skin test done back in August 2023 Is requesting to have some forms filled out today, including her application for foster care [facility] Medical History (Updated 12/04/23 @ 09:38 by Alireza Garcia MD) GERD without esophagitis Vitamin D deficiency Pure hypercholesterolemia Morbid obesity with BMI of 50.0-59.9, adult Surgical History (Updated 12/04/23 @ 09:32 by Alireza Garcia MD) Previous section History of laparoscopic cholecystectomy Hx of laparoscopic gastric banding Family History Mother Hypertension Hyperlipidemia Brother Hyperlipidemia Maternal Uncle Diabetes mellitus Social History Housing: House Alcohol intake: former Patient Tobacco Use Status: Never used Tobacco e-Cigarette/Vaping Use: Never Used Second Hand Smoke Exposure: No service: No Current occupational status: employed Cognitive needs: No Hearing needs: No Vision needs: No Questionnaire PHQ-9 Over the last 2 weeks, how often have you been bothered by any of the following problems? 1. Little interest or pleasure in doing things: not at all 2. Feeling down, depressed, or hopeless: not at all 3. Trouble falling or staying asleep, or sleeping too much: not at all 4. Feeling tired or having little energy: not at all 5. Poor appetite or overeating: not at all 6. Feeling bad about yourself - or that you are a failure or have let yourself or your family down: not at all 7. Trouble concentrating on things, such as reading the newspaper or watching television: not at all 8. Moving or speaking so slowly that other people could have noticed. Or the opposite - being so fidgety or restless that you have been moving around a lot more than usual: not at all 9. Thoughts that you would be better off or of hurting yourself in some way: not at all Total score: 0 Depression Screening Interpretation: Negative Depression Screening Done: Yes 90947 - PHQ-9 Billing: Yes Source: Developed by Drs. Daniel Jordan, Ruby Aguirre, Suresh Tucker and colleagues, with an educational amadeo from [employer]. Thrive Questionnaire Date Thrive assessed: 12/04/23 I am a: Patient What is your living situation today?: I have a steady place to live Within the past 12 months, did the food you bought not last and you didn't have the money to get more?: Never true Within the past 12 months, did you worry whether your food would run out before you got money to buy more?: Never true Do you have trouble paying for medicines?: No Do you have trouble getting transportation to medical appointments?: No Do you have trouble paying your heating and electricity bill?: No Do you have trouble taking care of your child, family member or friend?: No Do you have trouble with day-to-day activities such as bathing, preparing meals, shopping, managing finances, etc.?: No Are you currently unemployed and looking for a job?: No Are you interested in more education?: No Please select the resources that you would like help with: None Currently or been in a relationship where the following occur: no concerns reported THRIVE Score: 0 AUDIT C Alcohol Use Questionnaire (AUDIT-C) 1. How often do you have a drink containing alcohol?: Monthly or less 2. How many drinks containing alcohol do you have on a typical day when you are drinking?: 1 or 2 (wine) 3. How often do you have six or more drinks on one occasion?: Never Total Score: 1 Score Reviewed/Action Taken: Yes GALA-7 AMB Questionnaire GALA-7 Date GALA - 7 assessed: 10/22/23 Source: Developed by Drs. Daniel Jordan, Ruby Agiurre, Suresh Tucker and colleagues, with an educational amadeo from [employer]. Review of Systems Const Denies chills, Denies fatigue, Denies fever(s), Denies headache(s) and Denies malaise Eyes Denies blurry vision, Denies change in vision, Denies irritation and Denies itchy eyes ENT Denies dysphagia, Denies dizziness, Denies otalgia, Denies headache(s), Denies nasal congestion, Denies neck pain, Denies odynophagia, Denies sinus pain and Denies sore throat Card Denies chest pain, Denies rapid heart rate, Denies irregular heart rhythm, Denies palpitations and Denies dyspnea Resp Denies chest congestion, Denies cough, Denies dyspnea and Denies wheezing GI Denies abdominal pain, Denies bloating, Denies constipation, Denies dysphagia, Denies heartburn, Denies diarrhea, Denies nausea, Denies odynophagia and Denies vomiting Denies hematuria, Denies urinary frequency, Denies dysuria, Denies urinary incontinence and Denies urinary urgency Musc Denies back pain, Denies arthralgias, Denies joint swelling, Denies muscle weakness and Denies neck pain Skin/Breast Denies breast pain, Denies breast mass, Denies change in pigmentation, Denies lesions, Denies rash and Denies unusual bruising Neuro Denies dizziness, Denies headache(s) and Denies paresthesias Psych Denies anxiety and Denies depression Endo Denies fatigue and Denies palpitations Keyur/Lymph Denies easy bruising Aller/Immun Denies itchy eyes and Denies wheezing Physical exam (Primary Care) Vital Signs: Last Vital Signs Pulse 61 12/04/23 08:45 BP 116/68 12/04/23 08:45 Pulse Ox 99 12/04/23 08:45 Oxygen Delivery Method Room Air 12/04/23 08:45 BMI result Body Mass Index 50.8 Tobacco/Smoking Status: Tobacco use Status Tobacco use date assessed 12/04/23 12/04/23 08:49 Patient Tobacco Use Status Never used Tobacco 12/04/23 08:49 e-Cigarette/Vaping Use Never Used 12/04/23 08:49 PHQ-9: PHQ-9 Score PHQ-9: Total score 0 12/04/23 09:19 Depression Screening Interpretation: Negative Thrive Assessment: Date of Thrive Assessment Date Thrive assessed 12/04/23 12/04/23 09:19 Currently or been in a relationship where the following occur: no concerns reported Const General: no acute distress, alert and awake Orientation/consciousness: patient oriented x3 HENMT Head: Yes normocephalic and Yes atraumatic Ears: external ears normal, TM's normal bilaterally and EAC's normal General nose exam: No nasal discharge present Face and sinus: Yes normal facial exam and Yes sinuses nontender Teeth and gingiva: dentition normal Throat: Yes posterior oropharynx normal and Yes tonsils normal (no TP congestion) Eyes Eyelids: Yes eyelids normal Conjunctivae: conjunctivae normal Pupils: Equal, round and reactive pupils present EOM: EOMs intact bilaterally Neck Neck: Yes no lymphadenopathy and Yes supple Thyroid: Thyroid normal Resp Auscultation: clear to auscultation bilaterally, no rales and no wheezes Cardio Rate: regular rate Rhythm: regular rhythm Heart sounds: no murmurs GI Palpation (GI): Soft to palpation, nontender and No hepatosplenomegaly present Auscultation: normal bowel sounds General: Yes no CVA tenderness Back/Spine/Pelvis Back: no CVA tenderness Thoracic/Lumbar Spine: thoracic and lumbar spine normal to inspection Skin Lesions: no lesions Rashes: no rashes Neuro General: patient oriented x3, moves all extremities, no focal motor deficits and CN's II-XI intact bilaterally Cranial nerves: Yes Equal, round and reactive pupils present Cognition (Neuro): normal cognition Gait exam (Neuro): Normal gait present Extrem General: Yes no clubbing, cyanosis or edema Results Reviewed Results Reviewed: Laboratory Tests 10/10/23 10/10/23 10/22/23 08:19 08:21 13:03 WBC 7.0 Hgb 11.9 L Hct 37.5 Plt Count 305 ESR 9 Sodium 143 Potassium 4.0 Creatinine 0.77 Estimated GFR > 60 Fasting Glucose 98 Uric Acid 5.0 Calcium 9.0 D AST 12 ALT 8 C-Reactive Protein 0.52 H Triglycerides 72 Cholesterol 161 LDL Cholesterol, Calc 113 H HDL Cholesterol 34 L 25-OH Vitamin D Total 24.2 L TSH 0.88 Ur Specific [place] 1.020 Urine Protein 30 (1+) H Urine Glucose (UA) Negative Urine Blood Large (3+) H Urine Nitrite Negative Ur Leukocyte Esterase Small (1+) H Assessment and Plan Assessment & Plan (1) Annual physical exam: Code(s): Z00.00 - Encounter for general adult medical examination without abnormal findings Plan: Results of her labs done last month reviewed and discussed with patient She is up-to-date with her cancer screenings - just had her mammogram done in September 2023 and is scheduled for her gynecology exam and pap smear in January 2024 (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 [facility]) (2) Pure hypercholesterolemia: Code(s): E78.00 - Pure hypercholesterolemia, unspecified Plan: Patient is advised that her cholesterol levels have improved significantly from her numbers back in 2021 on her recent labs Reinforced low cholesterol diet Will recheck her fasting lipids and labs in 6 months for follow up (3) Chronic constipation: Code(s): K59.09 - Other constipation Plan: Encouraged increased oral fluids and dietary fiber Continue OTC stool softeners as needed (4) Vitamin D deficiency: Code(s): E55.9 - Vitamin D deficiency, unspecified Plan: Advised that her Vitamin D level was still low on her labs done last month Will start her on Vitamin D3 2000 units QD (5) GERD without esophagitis: Code(s): K21.9 - Gastro-esophageal reflux disease without esophagitis Plan: Dietary restrictions reinforced Continue Pantoprazole 40 mg QD PRN (6) Left foot pain: Code(s): M79.672 - Pain in left foot Plan: Possibly due to plantar fasciitis and also heel spurs Left foot x-rays done a few weeks ago also revealed (+) calcaneal and retrocalcaneal enthesophytes She has been referred to podiatry and is currently still awaiting her appointment to be scheduled Continue Tramadol 50 mg only as needed for severe pain and at night when needed to help her get some sleep until she is able to get in to see podiatry - Rx refilled (7) Morbid obesity with BMI of 50.0-59.9, adult: Code(s): E66.01 - Morbid (severe) obesity due to excess calories; Z68.43 - Body mass index [BMI] 50.0-59.9, adult Plan: S/P lap banding at [facility] years ago; lap band was removed in June 2023 She has managed to lose at least 10 pounds since her last visit just over a month ago Reinforced diet/exercise as tolerated/lose weight Follow up with bariatric surgery/weight management as scheduled Plan Follow up in 6 months or PRN Orders: Orders Lipid Panel 6 Months E78.00 - Pure hypercholesterolemia, unspecified UA CC w/rflx Micro + Cult 6 Months R30.0 - Dysuria Vitamin D 25-OH Total 6 Months E55.9 - Vitamin D deficiency, unspecified Complete Blood Count Auto Diff 6 Months D64.9 - Anemia, unspecified Comprehensive [place]. Panel Fast 6 Months E78.00 - Pure hypercholesterolemia, unspecified Medications: New cholecalciferol (vitamin D3) 50 mcg PO DAILY 90 caps 3RF 90 days E55.9 - Vitamin D deficiency, unspecified Refilled tramadol Take as needed ONLY for severe pain 50 mg PO BID PRN 30 tabs 0RF severe pain 15 days Coding Level of Care Code Est Pt Prev Care 40-64y(12430) Diagnoses Annual physical exam Z00.00 Pure hypercholesterolemia E78.00 Chronic constipation K59.09 Vitamin D deficiency E55.9 GERD without esophagitis K21.9 Left foot pain M79.672 Morbid obesity with BMI of 50.0-59.9, adult E66.01; Z68.43
[2023-12-04 08:45] VITALS: BP 116/68; PULSE 61; O2SAT 99; BMI 50.8
== END 2023-12-04 09:33 | disposition home or self-care (01) ==
PROVIDERS: PCP Internal Medicine; Visit Provider Internal Medicine
DX: Z00.00 Encounter for general adult medical examination without abnormal findings (principal); E66.01 Morbid (severe) obesity due to excess calories; Z68.43 Body mass index [BMI] 50.0-59.9, adult; E78.00 Pure hypercholesterolemia, unspecified; K59.09 Other constipation; E55.9 Vitamin D deficiency, unspecified; K21.9 Gastro-esophageal reflux disease without esophagitis; M79.672 Pain in left foot
CPT/HCPCS: 99396

== ENCOUNTER 2024-02-10 14:34 | Outpatient (AMB) | payer OTHER, SELFPAY ==
--- NOTE | 2024-02-10 14:41 | AM.OFFWIN_ITS ---
Intake Vital Signs 02/10/24 14:42 Height 5 ft 4 in Weight 307 lb BMI 52.7 BP 128/82 Blood Pressure Location Lt brachial Position Sitting Pulse 72 Pulse Source Pulse Oximeter Temp 98.3 F Temp Source Oral Pulse Oximetry (%) 98 Oxygen Delivery Method Room Air Intake Visit Reasons: EP Red eyes/blurred vision Intake Note: pt here c/o red eyes and blurred vision. Started Patient Tobacco Use Status: Never used Tobacco Allergies No Known Allergies [No Known Allergies*] Allergy (Verified 02/10/24 14:42) Do you need a note to return to daycare/school/sports/work: No HPI HPI Comments History of Present Illness Details 43 y/o female patient who presents to [facility] in clinic with c/o red, itchy burning eyes since this morning. Pt c/o blurry vision, but denies pain. Pt has a Routine eye appointment in May. COUNTS INCLUDE 234 BEDS AT THE [facility] Medical History (Updated 12/04/23 @ 09:38 by Alireza Garcia MD) GERD without esophagitis Vitamin D deficiency Pure hypercholesterolemia Morbid obesity with BMI of 50.0-59.9, adult Surgical History (Updated 12/04/23 @ 09:32 by Alireza Garcia MD) Previous section History of laparoscopic cholecystectomy Hx of laparoscopic gastric banding Family History Mother Hypertension Hyperlipidemia Brother Hyperlipidemia Maternal Uncle Diabetes mellitus Social History Housing: House Alcohol intake: former Patient Tobacco Use Status: Never used Tobacco e-Cigarette/Vaping Use: Never Used Second Hand Smoke Exposure: No service: No Current occupational status: employed Cognitive needs: No Hearing needs: No Vision needs: No Review of Systems Const All systems reviewed & are unremarkable except as noted in HPI and below Physical Exam Vital Signs: Last Vital Signs Temp 98.3 F 02/10/24 14:42 Pulse 72 02/10/24 14:42 BP 128/82 02/10/24 14:42 Pulse Ox 98 02/10/24 14:42 Oxygen Delivery Method Room Air 02/10/24 14:42 BMI result Body Mass Index 52.7 Const General: comfortable and no acute distress Nutritional Appearance: obese Orientation/consciousness: patient oriented x3 HEENT Head: Yes normocephalic Ears: external ears normal and TM's normal bilaterally Face and sinus: Yes sinuses nontender Mouth: moist mucous membranes Throat: Yes posterior oropharynx normal Eyes Eyelids: Yes eyelids normal Conjunctivae: conjunctival abnormal (Redness and dry) bilateral Corneas: corneas abnormal Pupils: Equal, round and reactive pupils present EOM: EOMs intact bilaterally Neuro General: patient oriented x3, gait normal and moves all extremities Cranial nerves: Yes Equal, round and reactive pupils present Psych Speech and movement: Normal speech and movement present Assessment & Plan Assessment & Plan (1) Acute atopic conjunctivitis: Code(s): H10.10 - Acute atopic conjunctivitis, unspecified eye Qualifiers: Laterality: bilateral Qualified Code(s): H10.13 - Acute atopic conjunctivitis, bilateral Plan: - Maintain a good eye hygiene -Use Medication as prescribed. - F/U with Eye doctor. Has an Appointment in May. Medications: New ciprofloxacin HCl 0.3% put 1-2 drps in affected eye(s) every 2hr up to 8 times/day x2days; then 4 times/day x5days ophthalmic (eye) 7 days 5 mL 0RF H10.13 - Acute atopic conjunctivitis, bilateral Coding Level of Care Code Est Pt Level 3 (26671) Diagnoses Acute atopic conjunctivitis of both eyes H10.13 Laterality: bilateral Time Spent (min) 15
[2024-02-10 14:42] VITALS: BP 128/82; PULSE 72; TEMP 36.8; O2SAT 98; BMI 52.7
== END 2024-02-10 15:51 | disposition home or self-care (01) ==
PROVIDERS: PCP Internal Medicine; Visit Provider Nurse Practitioner Family
DX: H10.13 Acute atopic conjunctivitis, bilateral (principal)
CPT/HCPCS: 99213

== ENCOUNTER 2024-02-19 22:03 | Emergency (ER) | payer OTHER, SELFPAY ==
--- NOTE | 2024-02-19 22:05 | ECG_ITS ---
Test Reason : CHEST PAIN Blood Pressure : / mmHG Vent. Rate : 114 BPM Atrial Rate : 114 BPM P-R Int : 136 ms QRS Dur : 072 ms QT Int : 330 ms P-R-T Axes : 054 010 021 degrees QTc Int : 454 ms Sinus tachycardia Otherwise normal ECG When compared with ECG of 21-JUN-2021 19:37, Vent. rate has increased BY 48 BPM Referred By: Generic ED Physician Electronically Signed By:Chuy Thomson
[2024-02-19 22:15] VITALS: BP 130/86; PULSE 109; RESP 16; TEMP 35.9; O2SAT 99; BMI 51.9
[2024-02-19 22:19] LABS: MANUAL DIFF FLAG NO
[2024-02-19 22:20] LABS: Basophils Percent Auto 0.3 % (0-2); Eosinophils Absolute Auto 0.1 X10*3/uL (0.0-0.4); Eosinophils Percent Auto 1.4 % (0-4); Hematocrit 38.9 % (37.0-47.0); Hemoglobin 12.8 g/dl (12.0-16.0); Imm Gran Abs Auto 0.03 X10*3/uL (0.00-0.03); Imm Gran Pct Auto 0.3 % (0.0-0.4); Lymphocytes Absolute Auto 2.8 X10*3/uL (1.2-4.9); Lymphocytes Percent Auto 31.7 % (20-40); Mean Corpuscular HGB Conc 32.9 g/dl (31.0-35.0); Mean Corpuscular Hemoglobin 27.2 pg (27.0-33.0); Mean Corpuscular Volume 82.8 fL (80.0-98.0); Mean Platelet Volume 9.6 fL (9.4-12.3); Monocytes Absolute Auto 0.7 X10*3/uL (0.1-1.2); Monocytes Percent Auto 7.8 % (2-11); Neutrophils Absolute Auto 5.1 x10*3/uL (2.0-8.3); Neutrophils Percent Auto 58.5 % (45-73); Platelet Count 308 X10*3/uL (160-400); Red Cell Distribution Width 13.5 % (11.0-16.0); White Blood Count 8.7 X10*3/uL (4.8-10.8)
[2024-02-19 22:32] LABS: Alanine Aminotransferase 8 U/L (0-31); Albumin Level 3.9 g/dL (3.5-5.0); Alkaline Phosphatase 96 U/L (39-117); Anion Gap 14 (12-20); Aspartate Amino Transferase 12 U/L (5-31); Bilirubin Total 0.7 mg/dL (0.0-1.0); Blood Urea Nitrogen 17 mg/dL (9-16); Calcium 9.5 mg/dL (8.4-10.2); Carbon Dioxide 26 mmol/L (22-29); Chloride 106 mmol/L (96-108); Creatinine Clr Calc Pharmacy 123.7; Estimated Glomerular Filt Rate > 60; Glucose Random 87 mg/dL (60-115); Potassium 3.6 mmol/L (3.3-5.1); Sodium 142 mmol/L (135-145); Total Protein 6.8 g/dL (6.5-8.0)
[2024-02-19 22:41] LABS: Troponin-I High Sensitivity < 2.7 ng/L (<3.5-17.0)
[2024-02-20 00:20] VITALS: BP 112/77; PULSE 77; RESP 18; TEMP 36.9; O2SAT 99
[2024-02-20 00:54] LABS: Troponin-I High Sensitivity < 2.7 ng/L (<3.5-17.0)
--- NOTE | 2024-02-20 02:23 | ED_ITS ---
HPI - Chest Pain General Chief Complaint: Chest Pain Stated Complaint: Chest pain/L arm pain/Nausea Time Seen by Provider: 02/20/24 02:11 Source: patient Mode of arrival: ambulatory Limitations: no limitations History of Present Illness ED Provider: Dr. Destiney Del Toro HPI narrative: Patient comes to the emergency room complaining 10 hours now of chest pain. Patient states that she had a slight discomfort on her chest , radiating towards the left arm, which self-resolved. At this time, patient denies any chest pain or shortness of breath. Patient denies any cardiac history. Complaining of mild nausea which self resolved, no vomiting no diarrhea no URI or UTI symptoms. Related Data Home Medications ?Medication ?Instructions ?Recorded ?Confirmed multivitamin 1 tab PO DAILY 02/11/23 12/04/23 Previous Rx's ?Medication ?Instructions ?Recorded pantoprazole 40 mg tablet,delayed 40 mg PO DAILY #30 tabs 10/12/23 release cholecalciferol (vitamin D3) 50 50 mcg PO DAILY 90 days #90 caps 12/04/23 mcg (2,000 unit) capsule tramadol 50 mg tablet 50 mg PO BID PRN severe pain 15 12/04/23 days #30 tabs ciprofloxacin HCl 0.3 % eye drops See Rx Instructions ophthalmic 02/10/24 (eye) .COMPLEX 7 days #5 mL Allergies Allergy/AdvReac Type Severity Reaction Status Date / Time No Known Allergies Allergy Verified 02/19/24 22:16 [No Known Allergies*] Review of Systems 2 Review of Systems: Constitutional : No Weight loss, No Fever, No Chills, No Night Sweats, No Fatigue, No Malaise ENT/Mouth : No Hearing loss, No Ear Pain, No Nasal Congestion, No Sinus Pain, No Hoarseness, No sore throat, No Rhinorrhea, No Swallowing Difficulty Eyes: No Eye Pain, No Swelling, No Redness, No Foreign Body, No Discharge, No Vision Changes Cardiovascular : Complaining of chest discomfort which self-resolved, No SOB, No Dyspnea on Exertion, No Orthopnea, No Edema, No Palpitations Respiratory : No Cough, No Sputum, No Wheezing, No Smoke Exposure, No Dyspnea Gastrointestinal : No Nausea, No Vomiting, No Diarrhea, No Constipation, No abdominal Pain, No Hematochezia, No Melena Genitourinary : no irregular bleeding, No Dysuria, No Urinary Frequency, No Hematuria, No Urinary Incontinence, No Urgency, No Flank Pain, No Urinary Flow Changes, No Hesitancy Musculoskeletal : No joint pain, No Myalgias, No Joint Swelling Skin : No Skin Lesions, No rash Neuro : No Weakness, No Numbness, No Paresthesias, No Loss of Consciousness, No Dizziness, No Headache Psych : No Anxiety/Panic, No Depression, No SI/HI/AH/VH, No Social Issues, Heme/Lymph: No Bruising, No Bleeding,No Lymphadenopathy Endocrine : No Polyuria, No Polydipsia, No Temperature Intolerance [facility] Past Medical History Medical History GERD without esophagitis Vitamin D deficiency Pure hypercholesterolemia Morbid obesity with BMI of 50.0-59.9, adult Surgical History (Updated 12/04/23 @ 09:32 by Alireza Garcia MD) Previous section History of laparoscopic cholecystectomy Hx of laparoscopic gastric banding Family History Family History Mother Hypertension Hyperlipidemia Brother Hyperlipidemia Maternal Uncle Diabetes mellitus Social History Social History Housing: House Alcohol intake: former Patient Tobacco Use Status: Never used Tobacco Smoked in Last 30 Days: No e-Cigarette/Vaping Use: Never Used Second Hand Smoke Exposure: No Advance Directives: No Advance Directives Information Provided: Yes Patient : No service: No Current occupational status: employed Cognitive needs: No Hearing needs: No Vision needs: No Physical Exam 2 Vital Signs: Vital Signs: Last Vital Signs Temp 98.4 F 02/20/24 00:20 Pulse 77 02/20/24 00:20 Resp 18 02/20/24 00:20 BP 112/77 02/20/24 00:20 Pulse Ox 99 02/20/24 00:20 O2 Del Method Room Air 02/20/24 00:20 BMI result Body Mass Index 51.9 Const: Other: Appearance: Alert. Oriented X3. No acute distress. Eyes: Pupils equal, round and reactive to light. ENT: Pharynx normal. Neck: Normal inspection. Neck supple. No lymph nodes noted. No crepitus CVS: Normal heart rate and rhythm. Pulses normal. Normal S1 and S2 Respiratory: No respiratory distress. Breath sounds normal. No Wheezing. No rales Abdomen: Soft and nontender. No rigidity. No distention. Skin: Skin warm and dry. Normal skin color. Normal skin turgor. Extremities: No lower extremity edema. No Lacerations. No Rash Neuro: Oriented X 3. No motor deficit. No sensory deficit. Moving all extremities. No slurred speech. CN 2 through 12 grossly intact Psych: calm, cooperative, normal affect Medical Decision Making Medical Decision Making [facility] Narrative: My interpretation of labs: Normal hematology and chemistry, troponin x2 negative -my interpretation of EKG: Normal sinus rhythm, heart rate 114, no ST segment depression or elevation, no T-wave inversion, QTC 454, EKGs not crossing over to the system. -I discussed the physical exam, labs and EKG with the patient. Patient likely had musculoskeletal pain. At this time, patient is asymptomatic, vitals within normal limits, blood pressure 112/77, heart rate 77, oxygen saturation 99% on room air. Differential Diagnosis Differential Diagnoses: The differential diagnosis associated with the presentation includes (ACS, musculoskeletal pain) Admission/Observation Consideration of admission/observation: Escalation of care including admission/observation considered (Given patient's complaints and body habitus , observation was considered) Lab Data [facility] Lab Attestation statement: I reviewed the patient's lab results. 02/19/24 22:14 02/19/24 22:14 Labs: Lab Results 02/19/24 02/20/24 Range/Units 22:14 00:25 WBC 8.7 (4.8-10.8) X10*3/uL RBC 4.70 (4.20-5.50) X10*6/uL Hgb 12.8 (12.0-16.0) g/dl Hct 38.9 (37.0-47.0) % MCV 82.8 (80.0-98.0) fL MCH 27.2 (27.0-33.0) pg MCHC 32.9 (31.0-35.0) g/dl RDW 13.5 (11.0-16.0) % Plt Count 308 (160-400) X10*3/uL MPV 9.6 (9.4-12.3) fL Immature Gran % (Auto) 0.3 (0.0-0.4) % Neut % (Auto) 58.5 (45-73) % Lymph % (Auto) 31.7 (20-40) % [place] % (Auto) 7.8 (2-11) % Eos % (Auto) 1.4 (0-4) % Baso % (Auto) 0.3 (0-2) % Lymph # (Auto) 2.8 (1.2-4.9) X10*3/uL [place] # (Auto) 0.7 (0.1-1.2) X10*3/uL Eos # (Auto) 0.1 (0.0-0.4) X10*3/uL Baso # (Auto) 0.0 (0.0-0.2) X10*3/uL Abs Immat Gran (auto) 0.03 (0.00-0.03) X10*3/uL Absolute Neuts (auto) 5.1 (2.0-8.3) x10*3/uL Absolute Nucleated RBC 0.000 (0.0-0.012) X10*3/uL Nucleated RBC % (auto) 0.0 (0.0-0.2) /100WBC Sodium 142 (135-145) mmol/L Potassium 3.6 (3.3-5.1) mmol/L Chloride 106 (96-108) mmol/L Carbon Dioxide 26 (22-29) mmol/L Anion Gap 14 (12-20) BUN 17 H (9-16) mg/dL Creatinine 0.82 (0.5-1.4) mg/dL Estim Creat Clear Calc 123.7 Estimated GFR > 60 Random Glucose 87 (60-115) mg/dL Calcium 9.5 (8.4-10.2) mg/dL Total Bilirubin 0.7 (0.0-1.0) mg/dL AST 12 (5-31) U/L ALT 8 (0-31) U/L Alkaline Phosphatase 96 (39-117) U/L Troponin I High Sens < 2.7 < 2.7 (<3.5-17.0) ng/L Total Protein 6.8 (6.5-8.0) g/dL Albumin 3.9 (3.5-5.0) g/dL Scores Heart Score History: -0- slightly suspicious ECG: -0- normal Age: -0- < or = 45 Risk factory: -0- no risk factors known Troponin: -0- < or = normal limit Score: 0 Risk: 1.7% Discharge Plan Discharge Clinical Impression: Atypical chest pain Patient Disposition: Home, Self-Care Instructions: Chest Pain (ED) Additional Instructions: Please follow-up with your primary care physician tomorrow. If you have any worsening or new symptoms, please return to the emergency room or call 911 Prescriptions: No Action pantoprazole 40 mg tablet,delayed release (DR/EC) 40 mg PO DAILY Qty: 30 0RF tramadol 50 mg tablet 50 mg PO BID PRN (Reason: severe pain) 15 Days Qty: 30 0RF Rx Instructions: Take as needed ONLY for severe pain cholecalciferol (vitamin D3) 50 mcg (2,000 unit) capsule 50 mcg PO DAILY 90 Days Qty: 90 3RF ciprofloxacin HCl 0.3 % drops See Rx Instructions ophthalmic (eye) .COMPLEX 7 Days Qty: 5 0RF Rx Instructions: put 1-2 drps in affected eye(s) every 2hr up to 8 times/day x2days; then 4 times/day x5days ophthalmic (eye) multivitamin Tablet 1 tab PO DAILY Print Language: Citizen Of [place]
[2024-02-20 02:51] VITALS: BP 112/77; PULSE 77; RESP 18; TEMP 36.9; O2SAT 99
== END 2024-02-20 02:53 | disposition home or self-care (01) ==
PROVIDERS: Emergency Provider Emergency Medicine; PCP Internal Medicine
DX: R07.89 Other chest pain (principal); E78.00 Pure hypercholesterolemia, unspecified; E66.9 Obesity, unspecified; Z68.43 Body mass index [BMI] 50.0-59.9, adult; Z98.84 Bariatric surgery status
CPT/HCPCS: 36415; 80053; 84484; 85025; 93005; 99283; 99284

== ENCOUNTER → 2024-02-19 22:05 | Outpatient (BNV) | payer OTHER, SELFPAY | PROVIDERS: Emergency Provider Emergency Medicine; PCP Internal Medicine; Visit Provider Internal Medicine Cardiovascular Disease | DX: R07.9 Chest pain, unspecified (principal) | CPT/HCPCS: 93010 ==

== ENCOUNTER → 2024-06-06 17:10 | Outpatient (BNVA) | payer OTHER, SELFPAY | PROVIDERS: PCP Internal Medicine; Visit Provider Internal Medicine ==

== ENCOUNTER 2025-02-24 12:25 | Outpatient (AMB) | payer OTHER, SELFPAY ==
--- OUTSIDE RECORDS SUMMARY | 2025-02-24 12:28 | XMS_ITS | Clinical Summary ---
Author Organization [address] Address [address] [place] [phone] Phone Care Team Providers Care Production Proofreader Name Role Phone Alireza Garcia MD Primary Care Provider Surgical History Surgery Date Site/Laterality Comments LAPAROSCOPIC GASTRIC BANDING PROCEDURE: LAP ADJUSTABLE GASTRIC BAND; COMMENT: [place] [facility] [place]2012 PROCEDURE: HISTORICAL CHOLECYSTECTOMY SECTION 09/10/2016 PROCEDURE: HISTORICAL DELIVERY Medical History Medical History Date Comments Morbid obesity (CMS/HCC V24, CMS/HCC V28) DX:Morbid obesity (HCC) H/O laparoscopic adjustable gastric banding 2011 DX:H/O laparoscopic adjustab le gastric banding History of anemia 08/20/2016 DX:History of anemia; COMMENT: H & H 10.9 / 33.6 Bacterial vaginosis 08/06/2016 DX:Bacterial vaginosis; COMMENT: 03/20/16, 05/02/15 Vaginal yeast infection 08/06/2016 DX:Vagin al yeast infection; COMMENT: 03/20/16, 05/02/15 History of vitamin D deficiency 06/02/2014 DX:History of vitamin D deficiency; COMMENT: Vitamin D = 19 Chronic headaches 09/29/2018 DX:Chronic hea daches Covid-19 12/06/2019 DX:COVID-19 Chronic constipation DX:Chronic constipation Rectal pain DX:Rectal pain Anal fissure DX:Anal fissure Family History Medical History Relation Name Comments No Known Problems Brother No Known Problems Father Diabetes Maternal Grandfather Hypertension Maternal Grandmother Stroke Maternal Grandmother Hyperlipidemia Mother Hypertension Mother No Known Problems Paternal Grandfather No Known Problems Paternal Grandmother No Known Problems Son 1 No Known Problems Son 2 Breast cancer Neg Hx Cervical cancer Neg Hx Colon cancer Neg Hx Ovarian cancer Neg Hx Relation Name Status Comments Brother Alive htn and high ch olesterol Father Alive not known Maternal Grandfather Maternal Grandmother Mother Alive htn and high ch olesterol Paternal Grandfather Paternal Grandmother Alive Son 1 Alive asthma Son 2 Alive Social History Tobacco Use Types Packs/Day Years Used Date Smoking Tobacco: Never Smokeless Tobacco: Never Alcohol Use Standard Drinks/Week Comments No 0 (1 standard drink = 0.6 oz pur e alcohol) Comments No Sex and Gender Information Value Date Recorded Sex Assigned at Not on file Legal Sex Female 2:54 AM EST Gender Identity Not on file Sexual Orientation Not on file Obstetrics History Para Term AB IAB SAB Ectopic Multiple Livin g Live Births 2 2 2 2 Date Outcome GA Total Labor Labor/2nd/3rd Weight Sex Type Anes PTL Melissa A1 A5 Name Clin Term Term Last Filed Vital Signs Vital Sign Reading Time Taken Comments Blood Pressure 121/81 01/13/2024 1:35 PM EDT Pulse 77 01/13/2024 1:35 PM EDT Temperature - - Respiratory Rate - - Oxygen Saturation - - Inhaled Oxygen Concentration - - Weight 137 kg (302 lb) 01/13/2024 1:35 PM EDT Height 162.6 cm (5' 4 ) 01/13/2024 1:35 PM EDT Body Mass Index 51.84 01/13/2024 1:35 PM EDT Plan of Treatment Upcoming Encounters Date Type Department Care Team (Late st Contact Info) Description 10/10/2025 11:00 AM EST Appointment Radiology Department [address] [phone] Health Maintenance Due Date Last Done Comments DTaP,Tdap,and Td Vaccines (2 - Td or Tdap) 07/26/2020 07/26/2010 Depression Screening 07/19/2022 HIV Screening 07/19/2022 Hepatitis C Screening 07/19/2022 Social Influencers of Health Screening 07/19/2022 COVID-19 Vaccine ( season) 2024 08/15/2022, 10/20/2021, 01/02/2021, Additional history exists Influenza Vaccine (#1) 2025 0, 06/20/2019, 05/24/2018, Additional history exists Cervical Cancer Screening: Pap Smear 01/01/2026 01/01/2023 Breast Cancer Screening 10/08/2026 10/09/19, 09/12/2023, 09/04/2022 Hepatitis A Vaccines Aged Out 12/05/2011, 08/05/2011, 07/15/2010 No longer eligible based on patient's age to complete this topic Hepatitis B Vaccines Completed 12/05/2011, 08/05/2011, 07/15/2010 HIB Vaccines Aged Out No longer eligi ble based on patient's age to complete this topic HPV Vaccines Aged Out No longer eligi ble based on patient's age to complete this topic IPV Vaccines Aged Out No longer eligi ble based on patient's age to complete this topic MMR Vaccines Aged Out No longer eligi ble based on patient's age to complete this topic Meningococcal ACWY Vaccine Aged Out N o longer eligible based on patient's age to complete this topic Meningococcal B Vaccine Aged Out No l onger eligible based on patient's age to complete this topic Pneumococcal Vaccine: Pediatrics (0 to 5 Years) and At-Risk Patients (6 to 49 Years) Aged Out No longer eligible based on patient's age to complete this topic RSV Immunization Patients Under 20 months Aged Out No longer eligible based on patient's age to complete this topic Varicella Vaccines Aged Out No longer eligible based on patient's age to complete this topic Procedures Procedure Name Priority Date/Time Associated Diagnosis Comments MG MAMMO DIGITAL SCREENING W [place] BILAT Routine 10/08/2024 10:47 AM EST Encounter for screening mammogram for breast cancer PAP SMEAR Routine 01/01/2023 from Last 3 Months or Most Recently Relevant to Health Maintenance Results * MG Mammo Digital Screening w [place] bilat (10/08/2024 10:47 AM EST) Anatomical Region Laterality Modality Breast Bilateral Mammography 10/10/2024 5:02 PM EST Impressions 10/10/2024 5:06 PM EST 1. No mammographic evidence of malignancy 2. Scattered fibroglandular tissue BI-RADS CATEGORY: 2 - BENIGN RECOMMENDATION: Screening bilateral mammogram is recommended in 1 year. Mammo Location: [facility], [address] [place] [address], [id number], . -------- FINAL REPORT -------- Dictated By: Eugenia Larose Dictated Date: 10/10/2024 17:02 ET Assigned Physician: Eugenia Larose Reviewed and Electronically Signed By: Eugenia Larose Signed Date: 10/10/2024 17:06 ET Workstation ID: [id number] Transcribed By: Self Edit Transcribed Date: 10/10/2024 17:02 ET Narrative 10/10/2024 5:06 PM EST A BILATERAL DIGITAL 3D SCREENING MAMMOGRAPHY HISTORY: Routine screening. No family history of breast cancer. COMPARISON: Multiple priors dating back to 09/04/2022 Technique: Bilateral full field digital mammography (3D) was performed using standard CC and MLO projections , bilateral exaggerated cc views CAD was used to evaluate this mammogram. FINDINGS: Right: No suspicious masses, groups of microcalcification or areas of architectural distortion identified. Stable typically benign parenchymal asymmetries. Left: No suspicious masses, groups of microcalcification or areas of architectural distortion identified. Stable typically benign parenchymal asymmetries. BREAST DENSITY: B - There are scattered areas of fibroglandular density. Procedure Note Eugenia Larose MD - 10/10/2024 A BILATERAL DIGITAL 3D SCREENING MAMMOGRAPHY HISTORY: Routine screening. No family history of breast cancer. COMPARISON: Multiple priors dating back to 09/04/2022 Technique: Bilateral full field digital mammography (3D) was performedusing standard CC and MLO projections , bilateral exaggerated cc views CAD was used to evaluate this mammogram. FINDINGS: Right: No suspicious masses, groups of microcalcification or areas ofarchitectural distortion identified. Stable typically benign parenchymalasymmetries. Left: No suspicious masses, groups of microcalcification or areas ofarchitectural distortion identified. Stable typically benign parenchymalasymmetries. BREAST DENSITY: B - There are scattered areas of fibroglandular density. IMPRESSION: 1. No mammographic evidence of malignancy 2. Scattered fibroglandular tissue BI-RADS CATEGORY: 2 - BENIGN RECOMMENDATION: Screening bilateral mammogram is recommended in 1 year. Mammo Location: [facility], [address] [place] [address], [id number], . -------- FINAL REPORT -------- Dictated By: Eugenia Larose Dictated Date: 10/10/2024 17:02 ET Assigned Physician: Eugenia Larose Reviewed and Electronically Signed By: Eugenia Larose Signed Date: 10/10/2024 17:06 ET Workstation ID: [id number] Transcribed By: Self Edit Transcribed Date: 10/10/2024 17:02 ET us Alireza Garcia MD IMG BI PROCEDURES Final Resu lt * Pap smear (01/01/2023) 01/01/2023 Narrative HISTORICAL TESTING LAB RESULTING AGENCY - 01/12/2023 6:51 AM EDT [id number] THINPREP PAP, IMAGED: NEGATIVE FOR SQUAMOUS INTRAEPITHELIAL LESION AND MALIGNANCY . ADELA RIVAS(ASCP) (CASE ELECTRONICALLY SIGNED 01 10 2023) RESULT OF APTIMA HIGH RISK HPV ASSAY: HIGH RISK HPV: NEGATIVE (SEROTYPES 16,18,31,33,35,39,45,51,52,56,58,59,66,68) COMPLETED ON 2023-01-02 ADEQUACY: SATISFACTORY ENDOCERVICAL/TRANSFORMATION ZONE COMPONENT ABSENT. SOURCE: THINPREP PAP HPV ANY DX: REFLEX 16 AND 18, CERVICAL, IMAGED CLINICAL INFORMATION: HPV ANY DIAGNOSIS. HORMONES, PAP HX NEGATIVE 2015, LMP 12/18/2022, [Z12.4] us Brenda NIEVES LAB CYTOLOGY ORDERABLES Final Result HISTORICAL TESTING LAB RESULTING AGENCY from Last 3 Months or Most Recently Relevant to Health Maintenance Insurance [facility] [place] [id number] Care Teams Production Proofreader Relationship Specialty Start Date End Date Alireza Garcia MD [address] [place] [address] [address] [place], [place] PCP - General 04/28/23
--- OUTSIDE RECORDS SUMMARY | 2025-02-24 12:28 | XMS_ITS | Patient Health Record ---
Author Organization [facility] Address [address] [place] [address] Care Team Providers Care Healthcare Facility Administrator Name Role Phone Kehinde Millard Jr [phone] Reason For Referral No Information Plan Of Treatment No Information
--- NOTE | 2025-02-24 12:35 | A.OFFPC_ITS ---
Vital Signs 02/24/25 12:36 Height 5 ft 4 in Weight 328 lb 2 oz BMI 56.3 BP 124/84 Blood Pressure Location Lt brachial Position Sitting Pulse 64 Pulse Source Pulse Oximeter Pulse Oximetry (%) 99 Oxygen Delivery Method Room Air Intake Visit Reasons: worsening chest pain Supervisor Propellant Charge Loading Required: No Accompanied by: Self / Same As Patient Allergies No Known Allergies (No Known Allergies*) Allergy (Verified 02/24/25 12:46) Medication List - Last Reconciled 02/24/25 by Alireza Garcia MD cholecalciferol (vitamin D3) 50 mcg PO DAILY 90 days multivitamin 1 tab PO DAILY tramadol 50 mg PO BID PRN 15 days Tobacco use date assessed: 02/24/25 Dental Screening Dental Screen Date: 02/24/25 Did you have a dental visit in the last 12 months?: Yes Did you have a dental problem in the last 6 months where you did not have access to dental care?: No Was dental information given to patient?: Patient has dentist HPI worsening chest pain HPI Details Patient comes in today complaining of recurrent sharp and diffuse chest (wall) pains, which she states has been going on for a few months and she feels are getting worse and occurring more often lately She reports that her chest pains do not seem to be related to activity or exertion as they have occurred when she is sitting down or lying down in bed States that her chest pains also are not associated with any SOB or chest tightness She denies any headaches or dizziness No nausea/vomiting, no abdominal pain No change in bowel habits noted [facility] Medical History GERD without esophagitis Vitamin D deficiency Pure hypercholesterolemia Morbid obesity with BMI of 50.0-59.9, adult Surgical History Previous section History of laparoscopic cholecystectomy Hx of laparoscopic gastric banding Family History Mother Hypertension Hyperlipidemia Brother Hyperlipidemia Maternal Uncle Diabetes mellitus Social History Housing: House Alcohol intake: former Patient Tobacco Use Status: Never used Tobacco e-Cigarette/Vaping Use: Never Used Second Hand Smoke Exposure: No service: No Current occupational status: employed Cognitive needs: No Hearing needs: No Vision needs: No Questionnaire PHQ-9 Over the last 2 weeks, how often have you been bothered by any of the following problems? 1. Little interest or pleasure in doing things: not at all 2. Feeling down, depressed, or hopeless: not at all 3. Trouble falling or staying asleep, or sleeping too much: not at all 4. Feeling tired or having little energy: not at all 5. Poor appetite or overeating: not at all 6. Feeling bad about yourself - or that you are a failure or have let yourself or your family down: not at all 7. Trouble concentrating on things, such as reading the newspaper or watching television: not at all 8. Moving or speaking so slowly that other people could have noticed. Or the opposite - being so fidgety or restless that you have been moving around a lot more than usual: not at all 9. Thoughts that you would be better off or of hurting yourself in some way: not at all Total score: 0 Depression Screening Interpretation: Negative Depression Screening Done: Yes 16580 - PHQ-9 Billing: Yes Source: Developed by Drs. Daniel Jordan, Ruby Aguirre, Suresh Tucker and colleagues, with an educational amadeo from [employer]. Thrive Questionnaire Date Thrive assessed: 02/24/25 I am a: Patient What is your living situation today?: I have a steady place to live Within the past 12 months, did the food you bought not last and you didn't have the money to get more?: Never true Within the past 12 months, did you worry whether your food would run out before you got money to buy more?: Never true Do you have trouble paying for medicines?: No Do you have trouble getting transportation to medical appointments?: No Do you have trouble paying your heating and electricity bill?: No Do you have trouble taking care of your child, family member or friend?: No Do you have trouble with day-to-day activities such as bathing, preparing meals, shopping, managing finances, etc.?: No Are you currently unemployed and looking for a job?: No Are you interested in more education?: No Please select the resources that you would like help with: None Currently or been in a relationship where the following occur: No concerns reported THRIVE Score: 0 AUDIT C Alcohol Use Questionnaire (AUDIT-C) 1. How often do you have a drink containing alcohol?: Monthly or less 2. How many drinks containing alcohol do you have on a typical day when you are drinking?: 1 or 2 (wine) 3. How often do you have six or more drinks on one occasion?: Never Total Score: 1 Score Reviewed/Action Taken: Yes GALA-7 AMB Questionnaire GALA-7 Date GALA - 7 assessed: 02/24/25 Feeling nervous, anxious, or on edge: 0 = Not at all Not being able to stop or control worryin = Not at all Worrying too much about different things: 0 = Not at all Trouble relaxin = Not at all Being so restless that it is hard to sit still: 0 = Not at all Becoming easily annoyed or irritable: 0 = Not at all Feeling afraid as if something awful might happen: 0 = Not at all Total GALA-7 score (0-4 normal; 5-9 mild; 10-14 moderate; 15-21 severe): 0 Source: Developed by Drs. Daniel Jordan, Ruby Aguirre, Suresh Tucker and colleagues, with an educational amadeo from [employer]. Review of Systems Const Denies chills, Denies fatigue, Denies fever(s) and Denies headache(s) ENT Denies dysphagia, Denies dizziness, Denies otalgia, Denies headache(s), Denies neck pain, Denies odynophagia and Denies sore throat Card Reports chest pain (recurrent - see HPI), Denies diaphoresis, Denies palpitations and Denies dyspnea Resp Denies chest congestion, Denies cough and Denies dyspnea GI Denies abdominal pain, Denies constipation, Denies dysphagia, Denies heartburn, Denies diarrhea, Denies nausea, Denies odynophagia and Denies vomiting Denies difficulty voiding, Denies nocturia and Denies dysuria Musc Denies back pain and Denies neck pain Skin/Breast Denies rash Neuro Denies dizziness and Denies headache(s) Endo Denies fatigue and Denies palpitations Physical exam (Primary Care) Vital Signs: Last Vital Signs Pulse 64 02/24/25 12:36 BP 124/84 02/24/25 12:36 Pulse Ox 99 02/24/25 12:36 Oxygen Delivery Method Room Air 02/24/25 12:36 BMI result Body Mass Index 56.3 Tobacco/Smoking Status: Tobacco use Status Tobacco use date assessed 02/24/25 02/24/25 12:43 Patient Tobacco Use Status Never used Tobacco 02/24/25 12:43 e-Cigarette/Vaping Use Never Used 02/24/25 12:43 PHQ-9: PHQ-9 Score PHQ-9: Total score 0 02/24/25 13:06 Depression Screening Interpretation: Negative Thrive Assessment: Date of Thrive Assessment Date Thrive assessed 02/24/25 02/24/25 12:43 Currently or been in a relationship where the following occur: No concerns reported Const General: no acute distress and alert HENMT Throat: Yes posterior oropharynx normal and Yes tonsils normal (no TP congestion) Neck Neck: Yes supple and No lymphadenopathy Thyroid: Thyroid normal Chest Other: No reproducible tenderness noted on palpation of the anterior chest wall, sternum or ribs Resp Auscultation: clear to auscultation bilaterally, no rales and no wheezes Cardio Rate: regular rate Rhythm: regular rhythm Heart sounds: no murmurs GI Palpation (GI): Soft to palpation and nontender Auscultation: normal bowel sounds General: Yes no CVA tenderness Back/Spine/Pelvis Back: no CVA tenderness Thoracic/Lumbar Spine: No lumbar spinal tenderness Skin Rashes: no rashes Extrem General: Yes no clubbing, cyanosis or edema Coding Level of Care Code Est Pt Level 4 (88991) Diagnoses Chest pain, unspecified type R07.9 Chest pain type: unspecified Additional Codes PHQ-9 - 64968 - PHQ-9 Billing: Yes ([id number]) Assessment & Plan Assessment & Plan (1) Chest pain: Code(s): R07.9 - Chest pain, unspecified Category: Medical Qualifiers: Chest pain type: unspecified Qualified Code(s): R07.9 - Chest pain, unspecified Plan: In-office EKG done today came out normal - NSR with no acute ST-T wave changes Have advised patient that based also on her past exams/evaluation and the description of her symptoms, her chest pains appear to be musculoskeletal and less likely cardiac-related but as this has been going on for at least a year or more and with her risk factors (hyperlipidemia, obesity), will go ahead and send her for additional work ups and hopefully get some resolution on this Bello have her go get some fasting labs done tomorrow morning - will include cardiac markers to help further r/o out coronary cause of her chest pains She had chest x-rays done last year that came out completely normal Will send her for echocardiogram and cardiac stress testing COLBY for further evaluation - have advised patient that if her stress test comes out completely normal, then this effectively completely rules out any cardiac causes of her chest pains Plan To return as scheduled next month for her annual physical examination Orders: Orders CA echo transthoracic complete Today R06.09 - Other forms of dyspnea, R07.9 - Chest pain, unspecified Complete Blood Count Auto Diff Today D64.9 - Anemia, unspecified, R07.9 - Chest pain, unspecified Comprehensive [place]. Panel Fast Today E78.00 - Pure hypercholesterolemia, unspecified, R07.9 - Chest pain, unspecified C Reactive Protein Today R07.9 - Chest pain, unspecified Troponin-I High Sensitivity Today R07.9 - Chest pain, unspecified TSH reflex Free T4 Today E78.00 - Pure hypercholesterolemia, unspecified CK, Total+Isoenzymes, Serum Today R07.9 - Chest pain, unspecified CA cardiopulmonary stress test Today R07.89 - Other chest pain, R07.9 - Chest pain, unspecified Lipid Panel Today E78.00 - Pure hypercholesterolemia, unspecified, R07.9 - Chest pain, unspecified Erythrocyte Sedimentation Rate Today M79.7 - Fibromyalgia Vitamin D 25-OH Total Today E55.9 - Vitamin D deficiency, unspecified UA CC w/rflx Micro + Cult Today R30.0 - Dysuria Hemoglobin A1c Today R73.9 - Hyperglycemia, unspecified
[2025-02-24 12:36] VITALS: BP 124/84; PULSE 64; O2SAT 99; BMI 56.3
== END 2025-02-24 13:11 | disposition home or self-care (01) ==
LOC: HO.HMCH 12:26
PROVIDERS: PCP Internal Medicine; Visit Provider Internal Medicine
DX: R07.9 Chest pain, unspecified (principal)

== ENCOUNTER → 2025-02-24 12:25 | Outpatient (BNVA) | payer OTHER, SELFPAY | PROVIDERS: PCP Internal Medicine; Visit Provider Internal Medicine | DX: R07.9 Chest pain, unspecified (principal); Z13.31 Encounter for screening for depression; Z13.39 Encounter for screening examination for other mental health and behavioral disorders | CPT/HCPCS: 96127; 99212 ==

== ENCOUNTER 2025-02-25 08:38 | Outpatient (REF) | payer OTHER, SELFPAY ==
[2025-02-25 08:54] LABS: MANUAL DIFF FLAG NO
[2025-02-25 09:08] LABS: Hematocrit 36.7 % (37.0-47.0); Hemoglobin 12.0 g/dl (12.0-16.0); Imm Gran Abs Auto 0.01 X10*3/uL (0.00-0.03); Imm Gran Pct Auto 0.2 % (0.0-0.4); Lymphocytes Absolute Auto 2.0 X10*3/uL (1.2-4.9); Mean Corpuscular HGB Conc 32.7 g/dl (31.0-35.0); Mean Corpuscular Hemoglobin 26.7 pg (27.0-33.0); Mean Corpuscular Volume 81.7 fL (80.0-98.0); NRBC Abs Auto 0.000 X10*3/uL (0.0-0.012); NRBC Pct Auto 0.0 /100WBC (0.0-0.2); Platelet Count 275 X10*3/uL (160-400); Red Blood Count 4.49 X10*6/uL (4.20-5.50); White Blood Count 6.4 X10*3/uL (4.8-10.8)
[2025-02-25 09:15] LABS: Hemoglobin A1C 117.5247 umol/L; Total Hemoglobin (HGBA1C) 3176.0488 umol/L
[2025-02-25 09:53] LABS: Alanine Aminotransferase 10 U/L (0-31); Albumin Level 4.2 g/dL (3.5-5.0); Alkaline Phosphatase 87 U/L (39-117); Anion Gap 9 (12-20); Aspartate Amino Transferase 17 U/L (5-31); Blood Urea Nitrogen 18 mg/dL (9-16); Calcium 8.8 mg/dL (8.4-10.2); Carbon Dioxide 26 mmol/L (22-29); Chloride 110 mmol/L (96-108); Cholesterol 200 mg/dL (<200); Estimated Glomerular Filt Rate > 60; HDL Cholesterol 47 mg/dL (>40); Potassium 4.1 mmol/L (3.3-5.1); Sodium 141 mmol/L (135-145); Total Protein 7.1 g/dL (6.5-8.0); Triglycerides 88 mg/dL (<150)
[2025-02-25 09:55] LABS: Troponin-I High Sensitivity < 2.7 ng/L (<3.5-17.0)
[2025-03-01 22:49] LABS: CK-BB None Detected (None Detected); CK-MB 0 % (<5); CK-MM 100 % (95-100); Creatine Kinase,Total,Serum 101 U/L (20-239)
== END 2025-02-25 08:39 | disposition home or self-care (01) ==
LOC: HO.LAB 08:38
PROVIDERS: PCP Internal Medicine; Visit Provider Internal Medicine
DX: D64.9 Anemia, unspecified (principal); R07.9 Chest pain, unspecified; E78.00 Pure hypercholesterolemia, unspecified; E55.9 Vitamin D deficiency, unspecified; R73.9 Hyperglycemia, unspecified; M79.7 Fibromyalgia
CPT/HCPCS: 36415; 80053; 80061; 82306; 82552; 83036; 84443; 84484; 85025; 85652; 86140

== ENCOUNTER 2025-04-04 17:05 | Outpatient (AMB) | payer OTHER, SELFPAY ==
--- OUTSIDE RECORDS SUMMARY | 2025-04-04 17:09 | XMS_ITS | Clinical Summary ---
Author Organization [address] Address [address] [place] [phone] Phone Care Team Providers Care Roll Grinder Name Role Phone Alireza Garcia MD Primary Care Provider Surgical History Surgery Date Site/Laterality Comments LAPAROSCOPIC GASTRIC BANDING PROCEDURE: LAP ADJUSTABLE GASTRIC BAND; COMMENT: 2011 at [facility] CHOLECYSTECTOMY 08/10/2012 PROCEDURE: HISTORICAL CHOLECYSTECTOMY SECTION 09/10/2016 [...] Care Team (Late st Contact Info) Description 07/19/2025 2:00 PM EST Office Visit Obstetrics & Gynecology - [address] [id number] Linnea Ayala, [address] [address] 10/10/2025 11:00 AM EST Appointment Radiology Department - [address] [phone] Health Maintenance Due Date Last Done Comments DTaP,Tdap,and Td Vaccines (2 - Td or Tdap) 07/26/2020 07/26/2010 HIV Screening 07/19/2022 Hepatitis C Screening 07/19/2022 Social Influencers of Health Screening 07/19/2022 COVID-19 Vaccine ( season) 2024 08/15/2022, 10/20/2021, 01/02/2021, Additional history exists Depression Screening 08/10/2024 Influenza Vaccine (#1) 2025 , 06/20/2019, 05/24/2018, Additional history exists Cervical Cancer [...] is recommended in 1 year. Mammo Location: [facility], [address] [place] [address], [id number], . -------- FINAL REPORT -------- Dictated By: Eugenia Larose Dictated Date: 10/10/2024 17:02 ET Assigned Physician: Eugenia Larose Reviewed and Electronically Signed By: Eugenia Larose Signed Date: 10/10/2024 17:06 ET Workstation ID: [id number] Transcribed By: Self Edit Transcribed Date: 10/10/2024 [...] is recommended in 1 year. Mammo Location: [facility], [address] [place] [address], [id number], . -------- FINAL REPORT -------- Dictated By: Eugenia Larose Dictated Date: 10/10/2024 17:02 ET Assigned Physician: Eugenia Larose Reviewed and Electronically Signed By: Eugenai Larose Signed Date: 10/10/2024 17:06 ET Workstation ID: [id number] Transcribed By: Self Edit Transcribed Date: 10/10/2024 17:02 ET us Alireza Garcia MD IMG BI PROCEDURES Final Resu lt * Pap smear (01/01/2023) 01/01/2023 Narrative HISTORICAL TESTING LAB RESULTING AGENCY - 01/12/2023 6:51 AM EDT [id number] THINPREP PAP, IMAGED: NEGATIVE FOR SQUAMOUS INTRAEPITHELIAL LESION AND MALIGNANCY . RANGEL NEWTON , CT(ASCP) (CASE ELECTRONICALLY SIGNED 01 10 2023) RESULT OF APTIMA HIGH RISK HPV ASSAY: HIGH RISK HPV: NEGATIVE (SEROTYPES 16,18,31,33,35,39,45,51,52,56,58,59,66,68) COMPLETED ON 2023-01-02 ADEQUACY: SATISFACTORY ENDOCERVICAL/TRANSFORMATION ZONE COMPONENT ABSENT. SOURCE: THINPREP PAP HPV ANY DX: REFLEX 16 AND 18, CERVICAL, IMAGED CLINICAL INFORMATION: HPV ANY DIAGNOSIS. HORMONES, PAP HX NEGATIVE 2016, LMP 12/18/2022, [Z12.4] Brenda Denney CN LAB CYTOLOGY ORDERABLES Final Result HISTORICAL TESTING LAB RESULTING AGENCY from Last 3 Months or Most Recently Relevant to Health Maintenance Insurance [facility] [address] Care Teams Roll Grinder Relationship Specialty Start Date End Date Alireza Garcia MD [address] [place] [address] [address] [place], [place] PCP - General 04/28/23
--- OUTSIDE RECORDS SUMMARY | 2025-04-04 17:09 | XMS_ITS ---
Author Name [facility] Organization Unknown Care Team Organization Name Specialty Phone Email Start Date End Da shayla [facility] Termed, PROVIDER Primary Care 06/17/202203/10
--- OUTSIDE RECORDS SUMMARY | 2025-04-04 17:09 | XMS_ITS | Patient Health Record ---
Author Organization [facility] Address [address] [place] [address] Care Team Providers Care Solid Waste Management Engineer Name Role Phone Kehinde Millard Jr [phone] Reason For Referral No Information Plan Of Treatment No Information
--- OUTSIDE RECORDS SUMMARY | 2025-04-04 17:09 | XMS_ITS | Clinical Summary ---
Author Organization [employer] Address [address] [place] [address] Care Team Providers Care Software Applications Developer Name Role Phone Unavailable Primary Care Provider Unavailabl e Immunizations Immunization Administration Dates Next Due Moderna Covid-19 Vaccine 6+ Bivalent 08/15/2022 Social History Tobacco Use Types Packs/Day Years Used Date Smoking Tobacco: Never Assessed Comments Unknown Sex and Gender Information Value Date Recorded Sex Assigned at Female 06/09/2022 10:18 AM EDT Legal Sex Female 10:18 AM EDT Gender Identity Not on file Sexual Orientation Not on file Plan of Treatment Health Maintenance Due Date Last Done Comments Depression Screening 1981 HIV Screening 1981 SDOH Screening 1981 Disability Screening 1981 Alcohol/Substance Use Screening 1993 Tobacco Screening 1993 Family Planning (PISQ) 1996 HPV Vaccines (1 - 3-dose series) 1996 Hepatitis C Screening 1999 Pap Smear 2002 Cervical Cancer Screening 2011 HPV/Cotest 2011 DTaP/Tdap/Td Vaccines (2 - Td or Tdap) 07/26/2020 07/26/2010 COVID-19 Vaccine ( season) 2024 08/15/2022, 10/20/2021, 01/02/2021, Additional history exists Influenza Vaccine (#1) 2025 , 06/20/2019, 05/24/2018, Additional history exists Mammogram 10/08/2026 10/08/2024, 10/08/2024 Zoster Vaccines (1 of 2) 2031 RSV Patients and Patients Aged 60 years or older (1 - 1-dose 75+ series) 2056 Hepatitis A Vaccines Aged Out 12/05/2011, 08/05/2011, [...] patient's age to complete this topic Meningococcal Vaccine Aged Out No mao latisha eligible based on patient's age to complete this topic Pneumococcal Vaccine: Pediatrics (0 to 5 Years) and At-Risk Patients (6 to 49) Years Aged Out No longer eligible based on patient's age to complete this topic RSV under 20 months Aged Out No longe r eligible based on patient's age to complete this topic Rotavirus Vaccines Aged Out No longer eligible based on patient's age to complete this topic Insurance [facility] STANDARD [facility]
--- NOTE | 2025-04-04 17:20 | A.OFFPC_ITS ---
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 Required: No Accompanied by: Self / Same As Patient Allergies No Known Allergies (No Known Allergies*) Allergy (Verified 04/04/25 17:30) Medication List - Last Reconciled 04/04/25 by Alireza Garcia MD cholecalciferol (vitamin D3) 50 mcg PO DAILY 90 days multivitamin 1 tab PO DAILY tramadol 50 mg PO BID PRN 15 days Tobacco use date assessed: 04/04/25 Dental Screening Dental Screen Date: 04/04/25 Did you have a dental visit in the last 12 months?: Yes Did you have a dental problem in the last 6 months where you did not have access to dental care?: No Was dental information given to patient?: Patient has dentist HPI annual exam HPI Details Patient comes in today for her annual physical examination States that she feels okay except for right shoulder pain Relates that she tried to catch her son from falling a couple of days ago and apparently hurt her shoulder in the process as she has been experiencing inc reased pain and tightness around her right shoulder area since, including the right side of her neck and also over the right upper back area just above the right shoulder blade She denies any headaches or dizziness Denies any chest pains, no SOB No nausea/vomiting, no abdominal pain No change in bowel habits noted Denies any acute urinary symptoms Needs her Vitamin D Rx refilled - states that she has been out of this Rx for a while now She had her follow up labs done last month - to discuss her results She had her annual mammogram (normal) last done in October 2024 at [facility] States that she has her yearly gynecology exam and pap smear scheduled in July 2025, also at [facility] Medical History GERD without esophagitis Vitamin D deficiency Pure hypercholesterolemia Morbid obesity with BMI of 50.0-59.9, adult Surgical History Previous section History of laparoscopic cholecystectomy Hx of laparoscopic gastric banding Family History Mother Hypertension Hyperlipidemia Brother Hyperlipidemia Maternal Uncle Diabetes mellitus Social History Housing: House Alcohol intake: former Patient Tobacco Use Status: Never used Tobacco e-Cigarette/Vaping Use: Never Used Second Hand Smoke Exposure: No service: No Current occupational status: employed Cognitive needs: No Hearing needs: No Vision needs: No Questionnaire PHQ-9 Over the last 2 weeks, how often have you been bothered by any of the following problems? 1. Little interest or pleasure in doing things: not at all 2. Feeling down, depressed, or hopeless: not at all 3. Trouble falling or staying asleep, or sleeping too much: not at all 4. Feeling tired or having little energy: not at all 5. Poor appetite or overeating: not at all 6. Feeling bad about yourself - or that you are a failure or have let yourself or your family down: not at all 7. Trouble concentrating on things, such as reading the newspaper or watching television: not at all 8. Moving or speaking so slowly that other people could have noticed. Or the opposite - being so fidgety or restless that you have been moving around a lot more than usual: not at all 9. Thoughts that you would be better off or of hurting yourself in some way: not at all Total score: 0 Depression Screening Interpretation: Negative Depression Screening Done: Yes 95302 - PHQ-9 Billing: Yes Source: Developed by Drs. Daniel Jordan, Ruby Aguirre, Suresh Tucker and colleagues, with an educational amadeo from [email or web address]. Thrive Questionnaire Date Thrive assessed: 04/04/25 I am a: Patient What is your living situation today?: I have a steady place to live Within the past 12 months, did the food you bought not last and you didn't have the money to get more?: Never true Within the past 12 months, did you worry whether your food would run out before you got money to buy more?: Never true Do you have trouble paying for medicines?: No Do you have trouble getting transportation to medical appointments?: No Do you have trouble paying your heating and electricity bill?: No Do you have trouble taking care of your child, family member or friend?: No Do you have trouble with day-to-day activities such as bathing, preparing meals, shopping, managing finances, etc.?: No Are you currently unemployed and looking for a job?: No Are you interested in more education?: No Please select the resources that you would like help with: None Currently or been in a relationship where the following occur: No concerns reported THRIVE Score: 0 AUDIT C Alcohol Use Questionnaire (AUDIT-C) 1. How often do you have a drink containing alcohol?: Never 2. How many drinks containing alcohol do you have on a typical day when you are drinking?: 1 or 2 (wine) 3. How often do you have six or more drinks on one occasion?: Never Total Score: 0 Score Reviewed/Action Taken: Yes GALA-7 AMB Questionnaire GALA-7 Date GALA - 7 assessed: 04/04/25 Feeling nervous, anxious, or on edge: 0 = Not at all Not being able to stop or control worryin = Not at all Worrying too much about different things: 0 = Not at all Trouble relaxin = Not at all Being so restless that it is hard to sit still: 0 = Not at all Becoming easily annoyed or irritable: 0 = Not at all Feeling afraid as if something awful might happen: 0 = Not at all Total GALA-7 score (0-4 normal; 5-9 mild; 10-14 moderate; 15-21 severe): 0 Source: Developed by Drs. Daniel Jordan, Ruby Aguirre, Suresh Tucker and colleagues, with an educational amadeo from [email or web address]. Review of Systems Const Denies chills, Denies fatigue, Denies fever(s), Denies headache(s) and Denies malaise Eyes Denies blurry vision, Denies change in vision, Denies irritation and Denies itchy eyes ENT Denies dysphagia, Denies dizziness, Denies otalgia, Denies headache(s), Denies nasal congestion, Denies neck pain, Denies odynophagia, Denies sinus pain and Denies sore throat Card Denies chest pain, Denies rapid heart rate, Denies irregular heart rhythm, Denies palpitations and Denies dyspnea Resp Denies chest congestion, Denies cough, Denies dyspnea and Denies wheezing GI Denies abdominal pain, Denies bloating, Denies constipation, Denies dysphagia, Denies heartburn, Denies diarrhea, Denies nausea, Denies odynophagia and Denies vomiting Denies hematuria, Denies urinary frequency, Denies dysuria, Denies urinary incontinence and Denies urinary urgency Musc Denies back pain, Reports arthralgias (in and around the right shoulder area - see HPI), Denies joint swelling, Denies muscle weakness and Denies neck pain Skin/Breast Denies breast pain, Denies breast mass, Denies change in pigmentation, Denies lesions, Denies rash and Denies unusual bruising Neuro Denies dizziness, Denies headache(s) and Denies paresthesias Psych Denies anxiety and Denies depression Endo Denies fatigue and Denies palpitations Keyur/Lymph Denies easy bruising Aller/Immun Denies itchy eyes and Denies wheezing Physical exam (Primary Care) Vital Signs: Last Vital Signs Temp 97.3 F 04/04/25 17:21 Pulse 70 04/04/25 17:21 Resp 18 04/04/25 17:21 BP 130/78 04/04/25 17:21 Pulse Ox 99 04/04/25 17:21 Oxygen Delivery Method Room Air 04/04/25 17:21 BMI result Body Mass Index 57.6 Tobacco/Smoking Status: Tobacco use Status Tobacco use date assessed 04/04/25 04/04/25 17:26 Patient Tobacco Use Status Never used Tobacco 04/04/25 17:26 e-Cigarette/Vaping Use Never Used 04/04/25 17:26 PHQ-9: PHQ-9 Score PHQ-9: Total score 0 04/04/25 17:32 Depression Screening Interpretation: Negative Thrive Assessment: Date of Thrive Assessment Date Thrive assessed 04/04/25 04/04/25 17:26 Currently or been in a relationship where the following occur: No concerns reported Const General: no acute distress, alert and awake Orientation/consciousness: patient oriented x3 HENMT Head: Yes normocephalic and Yes atraumatic Ears: external ears normal, TM's normal bilaterally and EAC's normal General nose exam: No nasal discharge present Face and sinus: Yes normal facial exam and Yes sinuses nontender Teeth and gingiva: dentition normal Throat: Yes posterior oropharynx normal and Yes tonsils normal (no TP congestion) Eyes Eyelids: Yes eyelids normal Conjunctivae: conjunctivae normal Pupils: Equal, round and reactive pupils present EOM: EOMs intact bilaterally Neck Neck: Yes no lymphadenopathy and Yes supple Thyroid: Thyroid normal Resp Auscultation: clear to auscultation bilaterally, no rales and no wheezes Cardio Rate: regular rate Rhythm: regular rhythm Heart sounds: no murmurs GI Palpation (GI): Soft to palpation, nontender and No hepatosplenomegaly present Auscultation: normal bowel sounds General: Yes no CVA tenderness Back/Spine/Pelvis Back: no CVA tenderness Thoracic/Lumbar Spine: thoracic and lumbar spine normal to inspection Skin Lesions: no lesions Rashes: no rashes Neuro General: patient oriented x3, moves all extremities, no focal motor deficits and CN's II-XI intact bilaterally Cranial nerves: Yes Equal, round and reactive pupils present Cognition (Neuro): normal cognition Gait exam (Neuro): Normal gait present Extrem General: Yes no clubbing, cyanosis or edema Right upper extremity: shoulder/upper arm Details: tenderness Location: of the A-C joint and abnormal ROM (unable to fully raise right arm due to shoulder pain/tightness) Results Reviewed Results Reviewed: Laboratory Tests 02/25/25 08:51 WBC 6.4 Hgb 12.0 Hct 36.7 L Plt Count 275 ESR 12 Sodium 141 Potassium 4.1 Creatinine 0.78 Estimated GFR > 60 Fasting Glucose 97 Hemoglobin A1c % 5.5 Calcium 8.8 D AST 17 ALT 10 Troponin I High Sens < 2.7 C-Reactive Protein 0.29 Triglycerides 88 Cholesterol 200 H LDL Cholesterol, Calc 136 H HDL Cholesterol 47 25-OH Vitamin D Total 25.0 L TSH 1.21 Coding Level of Care Code Est Pt Prev Care 40-64y(25241) Diagnoses Annual physical exam Z00.00 Pure hypercholesterolemia E78.00 Chronic constipation K59.09 Vitamin D deficiency E55.9 GERD without esophagitis K21.9 Acute pain of right shoulder M25.511 Chronicity: acute Morbid obesity with BMI of 50.0-59.9, adult E66.01; Z68.43 Additional Codes PHQ-9 - 41399 - PHQ-9 Billing: Yes ([id number]) Assessment & Plan Assessment & Plan (1) Annual physical exam: Code(s): Z00.00 - Encounter for general adult medical examination without abnormal findings Category: Medical Plan: Results of her labs done last month reviewed and discussed with patient She is currently up-to-date with her cancer screenings - she had her annual mammogram (normal) last done in October 2024 at [facility] States that she has her yearly gynecology exam and pap smear scheduled in July 2025, also at [facility] (2) Pure hypercholesterolemia: Code(s): E78.00 - Pure hypercholesterolemia, unspecified Category: Medical Plan: She is advised that her cholesterol levels on her recent labs have gone up from a year ago Reinforced low cholesterol diet Will recheck her labs and fasting lipids in 6 months for follow up (3) Chronic constipation: Code(s): K59.09 - Other constipation Category: Medical Plan: Patient is encouraged again on increased oral fluids and dietary fiber intake Continue OTC stool softeners PRN (4) Vitamin D deficiency: Code(s): E55.9 - Vitamin D deficiency, unspecified Category: Medical Plan: Patient is advised that her Vitamin D level is still low on her recent labs - she admits to being our of her Rx for a while now Will start patient back on Vitamin D3 2000 units QD - Rx refilled (5) GERD without esophagitis: Code(s): K21.9 - Gastro-esophageal reflux disease without esophagitis Category: Medical Plan: Dietary restrictions reinforced Continue Pantoprazole 40 mg QD PRN (6) Right shoulder pain: Code(s): M25.511 - Pain in right shoulder Category: Medical Qualifiers: Chronicity: acute Qualified Code(s): M25.511 - Pain in right shoulder Plan: She apparently strained her shoulder while tryig to catch her son from falling a couple of days ago Will send her for x-rays of the right shoulder COLBY for further evaluation (7) Morbid obesity with BMI of 50.0-59.9, adult: Code(s): E66.01 - Morbid (severe) obesity due to excess calories; Z68.43 - Body mass index [BMI] 50.0-59.9, adult Category: Medical Plan: S/P lap banding at [facility] years ago; lap band was removed in June 2023 Reinforced diet/exercise as tolerated/lose weight Follow up with bariatric surgery/weight management as scheduled Plan Follow up in 6 months Orders: Orders 2 UA CC w/rflx Micro + Cult 6 Months R30.0 - Dysuria Vitamin D 25-OH Total 6 Months E55.9 - Vitamin D deficiency, unspecified XR shoulder RT min 2V Today M25.511 - Pain in right shoulder Comprehensive [place]. Panel Fast 6 Months E78.00 - Pure hypercholesterolemia, unspecified Lipid Panel 6 Months E78.00 - Pure hypercholesterolemia, unspecified Medications: Refilled cholecalciferol (vitamin D3) 50 mcg PO DAILY 90 caps 3RF 90 days E55.9 - Vitamin D deficiency, unspecified
[2025-04-04 17:21] VITALS: BP 130/78; PULSE 70; RESP 18; TEMP 36.3; O2SAT 99; BMI 57.6
== END 2025-04-04 17:42 | disposition home or self-care (01) ==
LOC: HO.HMCH 17:05
PROVIDERS: PCP Internal Medicine; Visit Provider Internal Medicine
DX: Z00.00 Encounter for general adult medical examination without abnormal findings (principal); E78.00 Pure hypercholesterolemia, unspecified; E66.01 Morbid (severe) obesity due to excess calories; Z68.43 Body mass index [BMI] 50.0-59.9, adult; K59.09 Other constipation; E55.9 Vitamin D deficiency, unspecified; K21.9 Gastro-esophageal reflux disease without esophagitis; M25.511 Pain in right shoulder

== ENCOUNTER → 2025-04-04 17:05 | Outpatient (BNVA) | payer OTHER, SELFPAY | PROVIDERS: PCP Internal Medicine; Visit Provider Internal Medicine | DX: Z00.00 Encounter for general adult medical examination without abnormal findings (principal); M25.511 Pain in right shoulder; E78.00 Pure hypercholesterolemia, unspecified; K59.09 Other constipation; E55.9 Vitamin D deficiency, unspecified; K21.9 Gastro-esophageal reflux disease without esophagitis; E66.01 Morbid (severe) obesity due to excess calories; Z68.43 Body mass index [BMI] 50.0-59.9, adult | CPT/HCPCS: 96127; 99396 ==

== ENCOUNTER 2025-04-05 09:23 | Outpatient (REF) | payer OTHER, SELFPAY ==
--- NOTE | ~2025-04-05 | XR_ITS ---
CLINICAL HISTORY: M25.511 - Pain in right shoulder Exam: AP, Grashey, scapular Y, and axillary views of the right shoulder. Comparison: None provided. Findings: Alignment of the glenohumeral joint is anatomic. Borderline widening of the acromioclavicular distance measuring 8 mm. Mild lateral downsloping of the acromion. No fracture. 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 Impression: 1. Borderline findings of grade 2 shoulder separation. Correlation with the patient's location of pain suggested. 2. Mild degenerative change. This document has been electronically signed by: Jorge A Gonzales MD on 04/06/2025 09:10:37
--- OUTSIDE RECORDS SUMMARY | 2025-04-05 09:57 | XMS_ITS | Clinical Summary ---
Author Organization [address] Address [address] [place] [id number] Phone Care Team Providers Care Sports Equipment Repairer Name Role Phone Alireza Garcia MD Primary Care Provider Surgical History Surgery Date Site/Laterality Comments LAPAROSCOPIC GASTRIC BANDING PROCEDURE: LAP ADJUSTABLE GASTRIC BAND; COMMENT: 2011 at [facility] CHOLECYSTECTOMY 08/10/2012 PROCEDURE: HISTORICAL CHOLECYSTECTOMY SECTION 09/10/2016 [...] EST Office Visit Obstetrics & Gynecology - [address] [id number] Linnea Ayala, [address] [address] 10/10/2025 11:00 AM EST Appointment Radiology Department - [address] [id number] Health Maintenance Due Date Last Done Comments [...] is recommended in 1 year. Mammo Location: [facility], [address] [place] [address], [id number], . -------- FINAL REPORT -------- Dictated By: Eugenia Larose Dictated Date: 10/10/2024 17:02 ET Assigned Physician: Euegnia Larose Reviewed and Electronically Signed By: Eugenia Larose Signed Date: 10/10/2024 17:06 ET Workstation ID: [id number] Transcribed By: Self Edit Transcribed Date: 10/10/2024 [...] is recommended in 1 year. Mammo Location: [facility], [address] [place] [address], [id number], . -------- FINAL REPORT -------- Dictated By: Eugenia Larose Dictated Date: 10/10/2024 17:02 ET Assigned Physician: Eugenia Larose Reviewed and Electronically Signed By: Eugenia Larose Signed Date: 10/10/2024 17:06 ET Workstation ID: [id number] Transcribed By: Self Edit Transcribed Date: 10/10/2024 17:02 ET us Alireza Garcia MD IMG BI PROCEDURES Final Resu lt * Pap smear (01/01/2023) 01/01/2023 Narrative HISTORICAL TESTING LAB RESULTING AGENCY - 01/12/2023 6:51 AM EDT [id number] THINPREP PAP, IMAGED: NEGATIVE FOR SQUAMOUS INTRAEPITHELIAL [...] Most Recently Relevant to Health Maintenance Insurance [facility] [employer] Care Teams Sports Equipment Repairer Relationship Specialty Start Date End Date Alireza Garcia MD [address] [place] [address] [address] [place], [place] PCP - General 04/28/23
--- OUTSIDE RECORDS SUMMARY | 2025-04-05 09:57 | XMS_ITS | Patient Health Record ---
Author Organization [facility] Address [address] [place] [address] Care Team Providers Care Clerk Operator Name Role Phone Kehinde Millard Jr [phone] Reason For Referral No Information Plan Of Treatment No Information
== END 2025-04-05 09:24 | disposition home or self-care (01) ==
LOC: HO.XRAY 09:23
PROVIDERS: PCP Internal Medicine; Visit Provider Internal Medicine
DX: M25.511 Pain in right shoulder (principal)
CPT/HCPCS: 73030

== ENCOUNTER → 2025-04-05 09:27 | Outpatient (BNV) | payer OTHER, SELFPAY | PROVIDERS: PCP Internal Medicine; Visit Provider Radiology Diagnostic Radiology | DX: M25.511 Pain in right shoulder (principal) | CPT/HCPCS: 73030 ==